=== PATIENT | female | born 1950 | race Hispanic/Latino ===

== ENCOUNTER 2018-01-06 08:24 | Emergency (ER) | payer OTHER ==
[2018-01-06] MEDS ORDERED: FAMOTIDINE 20 MG/2 ML VIAL IV ONE (09:13)
[2018-01-06] MEDS ORDERED: ONDANSETRON 4 MG/2 ML VIAL ONE (09:13)
[2018-01-06 09:33] LABS: Absolute Lymphocytes (CBC) 0.6 K/uL (0.7-4.9); Absolute Monocytes 0.4 K/uL (0.1-1.3); Absolute Neutrophil 6.7 K/uL (1.8-8.0); Basophils % 0.3 % (0-1.3); Eosinophils % 0.1 % (0-4.4); Hematocrit 39.3 % (36.0-45.0); Lymphocytes % 7.9 % (15.3-44.8); MCH 30.3 pg (27.0-35.0); MCV 88.6 fL (80-100); MPV 8.8 fL (7.6-11.3); Monocytes % 5.1 % (3.3-12.3); RBC Red Blood Cell Count 4.43 M/uL (3.86-4.86)
[2018-01-06 10:02] LABS: Albumin 4.3 g/dL (3.2-5.5); Bilirubin Direct 0.1 mg/dL (0-0.2); Bilirubin Total 0.7 mg/dL (0.3-1.2); Potassium 2.8 mEq/L (3.6-5.0); Protein, Total 8.4 g/dL (6.0-8.3)
--- NOTE | 2018-01-06 10:02 | RAD REPORT ---
EXAM DESCRIPTION: CT - Stone Protocol - 01/06/2018 9:42 am CLINICAL HISTORY: Abdominal pain. Epigastric pain with vomiting. COMPARISON: 2016 TECHNIQUE: Computed axial tomography of the abdomen pelvis was obtained without oral or IV contrast. Lack of IV and oral contrast limits evaluation of solid organs, bowel, and vessels. Coronal reformat endy images were obtained and reviewed. All CT scans are performed using dose optimization technique as appropriate and may include automated exposure control or mA/KV adjustment according to patient size. FINDINGS: A renal calculus is not seen. An ureteral calculus is not noted. A bladder calculus is not present. The liver, spleen, pancreas and adrenals appear grossly normal There is no evidence of diverticulitis. The appendix is dilated and fluid-filled measuring 23 millimeters. The appendix extends superiorly. S tranding within the adjacent fat is not seen. Spondylosis involves lumbar spine resulting in spinal stenosis IMPRESSION: Mucocele of the appendix
[2018-01-06] MEDS ORDERED: POTASSIUM 25 MEQ EFFERV TAB ONE (10:16)
[2018-01-06 10:20] LABS: Blood Morphology Comment NOT SEEN (NOT SEEN); Platelet Estimate ADEQ; Urine White Blood Cell Casts OK
[2018-01-06 10:52] LABS: Urine Bacteria 20-50 /HPF (<20); Urine Culture Reflex Order REFLEXED
[2018-01-06 11:16] LABS: Urine Blood 1+ (NEG); Urine Glucose NEGATIVE (NEG); Urine Protein 2+ (NEG); Urine Specific Gravity >1.030 (1.005-1.030)
--- NOTE | 2018-01-06 13:56 | ER ---
Nurse's Notes [facility] Name: Elvie Parson Age: 67 yrs Sex: Female : 1950 Arrival Date: 01/06/2018 Time: 08:25 Bed 8 Private MD: Diagnosis: Vomiting;Hypokalemia Presentation: 01/06 08:38 Presenting complaint: Patient states: epigastric pain with vomiting that began today at aa5 0400. Pt denies diarrhea. Transition of care: patient was not received from another setting of care. Onset of symptoms was December 2017. Initial Sepsis Screen: Does the patient meet any 2 criteria? No. Patient's initial sepsis screen is negative. Does the patient have a suspected source of infection? No. Patient's initial sepsis screen is negative. Care prior to arrival: None. 08:38 Method Of Arrival: Ambulatory [facility] 08:38 Acuity: CRISTINA 3 aa5 Historical: - Allergies: 08:39 No Known Allergies; aa5 - Home Meds: 08:39 None [Active]; aa5 - PMHx: 08:39 Heart Murmur; aa5 - PSHx: 08:39 None; aa5 - Immunization history:: Pneumococcal vaccine is not up to date, Flu vaccine is not up to date. - Social history:: Smoking status: Patient uses tobacco products, smokes one-half pack cigarettes per day. Screenin:09 Abuse screen: Denies threats or abuse. Nutritional screening: No deficits noted. ae1 Tuberculosis screening: No symptoms or risk factors identified. Fall Risk None identified. Assessment: 09:01 General: Appears in no apparent distress. uncomfortable, slender, Behavior is calm, ae1 cooperative. Pain: Complains of pain in epigastric area, right upper quadrant and left upper quadrant. Neuro: Level of Consciousness is awake, alert, obeys commands, Oriented to person, place, time, situation. Cardiovascular: Heart tones S1 S2 present Patient's skin is warm and dry. Rhythm is regular. Respiratory: Airway is patent Respiratory effort is even, unlabored, Respiratory pattern is regular, symmetrical, Breath sounds are clear bilaterally. GI: Bowel sounds present X 4 quads. Abd is soft Abdomen is tender to palpation in right upper quadrant and left upper quadrant Reports vomiting. GI: Patient currently denies diarrhea, Patient describes vomitus as "yellow and sometimes greenish". : No signs and/or symptoms were reported regarding the genitourinary system. EENT: No signs and/or symptoms were reported regarding the EENT system. wears glasses. Derm: Skin is normal. Musculoskeletal: No signs and/or symptoms reported regarding the musculoskeletal system. 10:00 Reassessment: Patient appears in no apparent distress at this time. Patient states ae1 feeling better. Patient states symptoms have improved. 11:30 Reassessment: No changes from previously documented assessment. Patient and/or family ae1 updated on plan of care and expected duration. Pain level reassessed. 13:58 Reassessment: Informed patient that provider would like a urine catheterization, ae1 patient refused cath, provider notified. Patient states feeling better. Patient states symptoms have improved. Vital Signs: 08:39 BP 155 / 95; Pulse 73; Resp 16 S; Temp 98.1(O); Pulse Ox 99% on R/A; Weight 68.49 kg aa5 (R); Height 5 ft. 7 in. (170.18 cm) (R); Pain 8/10; 09:30 BP 168 / 64; Pulse 59; Resp 16; Pulse Ox 98% on R/A; ae1 10:11 BP 163 / 72; Pulse 71; Resp 17; Pulse Ox 100% on R/A; ae1 11:00 BP 167 / 78; Pulse 64; Resp 16; Pulse Ox 100% ; jl7 11:37 BP 167 / 74; Pulse 70; Resp 16; Pulse Ox 100% ; jl7 13:39 BP 185 / 75; Pulse 74; Resp 18; Pulse Ox 99% on R/A; jb1 08:39 Body Mass Index 23.65 (68.49 kg, 170.18 cm) aa5 ED Course: 08:25 Patient arrived in ED. sb2 08:38 Triage completed. aa5 08:39 Arm band placed on. aa5 08:50 Martin Walker MD is Attending Physician. gs 08:59 Yosef Quiros, FREDO is Primary Nurse. ae1 09:06 Placed in gown. Bed in low position. Call light in reach. Side rails up X 1. Adult w/ ae1 patient. Pulse ox on. NIBP on. Warm blanket given. 09:10 Initial lab(s) drawn, by me. Inserted saline lock: 20 gauge in right antecubital area, jb1 using aseptic technique. Blood collected. 09:27 EKG done, by access tech. reviewed by Martin Walker MD. tc 09:41 CT completed. Patient tolerated procedure well. Patient moved to CT via stretcher. jg1 Patient moved back from CT. 09:42 CT Stone Protocol In Process Unspecified. EDMS Administered Medications: 09:09 Drug: Pepcid 20 mg Route: IVP; Site: right antecubital; ae1 10:21 Follow up: Response: No adverse reaction ae1 09:14 Drug: Zofran 4 mg Route: IVP; Site: right antecubital; ae1 10:21 Follow up: Response: Nausea is decreased ae1 10:21 Drug: Potassium Effervescent Tablet 50 mEq Route: PO; ae1 13:29 Follow up: Response: No adverse reaction ae1 Outcome: 13:55 Discharge ordered by . 14:17 Patient left the ED. aa 15:10 Patient left the ED. Addendum: 01/10/2018 10:16 Addendum: Culture Results: Positive urine culture. No further action required. Other: i w culture report was reviewed by HUMBERTO Saxena, pt had no urinary s/s and was advised to follow up with PCP, no further action needed. Signatures: Dispatcher [employer] EDMS Corey Gonzales jb1 Francine Rodriges jg1 Jacklyn Santizo, FREDO YOO iw Arlene Dee RN RN aa5 Jeri Sweeney, sap consultant EKG Ttc Yosef Quiros RN RN ae1 Kirstin Winter RN RN jl7 Martin Walker MD MD May Johnson 2
--- NOTE | 2018-01-06 13:56 | EDPHYS ---
Physician Documentation [facility] Name: Elvie Parson Age: 67 yrs Sex: Female : 1950 Arrival Date: 01/06/2018 Time: 08:25 Bed 8 Private MD: ED Physician Martin Walker HPI: 01/06 14:55 This 67 yrs old Female presents to ER via Ambulatory with complaints of Abd gs Pain > 50 y/o, Vomiting. 14:55 The patient presents to the emergency department with nausea, vomiting. Onset: The gs symptoms/episode began/occurred yesterday. Possible causes: unknown. The symptoms are aggravated by nothing. The symptoms are alleviated by nothing. Associated signs and symptoms: Pertinent positives: abdominal pain, epigastric. Severity of symptoms: At their worst the symptoms were severe in the emergency department the symptoms have improved markedly. The patient has experienced similar episodes in the past, a few times. Historical: - Allergies: 08:39 No Known Allergies; aa5 - Home Meds: 08:39 None [Active]; aa5 - PMHx: 08:39 Heart Murmur; aa5 - PSHx: 08:39 None; aa5 - Immunization history:: Pneumococcal vaccine is not up to date, Flu vaccine is not up to date. - Social history:: Smoking status: Patient uses tobacco products, smokes one-half pack cigarettes per day. ROS: 14:55 Cardiovascular: Negative for chest pain. gs 14:55 All other systems are negative. Exam: 14:55 Head/Face: Normocephalic, atraumatic. Eyes: Pupils equal round and reactive to light, gs extra-ocular motions intact. Lids and lashes normal. Conjunctiva and sclera are non-icteric and not injected. Cornea within normal limits. Periorbital areas with no swelling, redness, or edema. ENT: Nares patent. No nasal discharge, no septal abnormalities noted. Tympanic membranes are normal and external auditory canals are clear. Oropharynx with no redness, swelling, or masses, exudates, or evidence of obstruction, uvula midline. Mucous membranes moist. Neck: Trachea midline, no thyromegaly or masses palpated, and no cervical lymphadenopathy. Supple, full range of motion without nuchal rigidity, or vertebral point tenderness. No Meningismus. Chest/axilla: Normal chest wall appearance and motion. Nontender with no deformity. No lesions are appreciated. Cardiovascular: Regular rate and rhythm with a normal S1 and S2. No gallops, murmurs, or rubs. Normal PMI, no JVD. No pulse deficits. Respiratory: Lungs have equal breath sounds bilaterally, clear to auscultation and percussion. No rales, rhonchi or wheezes noted. No increased work of breathing, no retractions or nasal flaring. Back: No spinal tenderness. No costovertebral tenderness. Full range of motion. Skin: Warm, dry with normal turgor. Normal color with no rashes, no lesions, and no evidence of cellulitis. MS/ Extremity: Pulses equal, no cyanosis. Neurovascular intact. Full, normal range of motion. Neuro: Awake and alert, GCS 15, oriented to person, place, time, and situation. Cranial nerves II-XII grossly intact. Motor strength 5/5 in all extremities. Sensory grossly intact. Cerebellar exam normal. Normal gait. 14:55 Constitutional: The patient appears alert, awake, uncomfortable. 14:55 ECG was reviewed by the Attending Physician. 15:03 Abdomen/GI: Palpation: moderate abdominal tenderness, in the epigastric area. Vital Signs: 08:39 BP 155 / 95; Pulse 73; Resp 16 S; Temp 98.1(O); Pulse Ox 99% on R/A; Weight 68.49 kg aa5 (R); Height 5 ft. 7 in. (170.18 cm) (R); Pain 8/10; 09:30 BP 168 / 64; Pulse 59; Resp 16; Pulse Ox 98% on R/A; ae1 10:11 BP 163 / 72; Pulse 71; Resp 17; Pulse Ox 100% on R/A; ae1 11:00 BP 167 / 78; Pulse 64; Resp 16; Pulse Ox 100% ; jl7 11:37 BP 167 / 74; Pulse 70; Resp 16; Pulse Ox 100% ; jl7 13:39 BP 185 / 75; Pulse 74; Resp 18; Pulse Ox 99% on R/A; jb1 08:39 Body Mass Index 23.65 (68.49 kg, 170.18 cm) aa5 MDM: 09:03 Patient medically screened. 15:03 Differential diagnosis: pancreatitis, appendicitis, viral gastroenteritis, gs gastroenteritis. Data reviewed: vital signs, nurses notes. Counseling: I had a detailed discussion with the patient and/or guardian regarding: the presence of at least one elevated blood pressure reading (>120/80) during this emergency department visit. Response to treatment: the patient's symptoms have markedly improved after treatment, the patient is now symptom free, patient is well hydrated. and as a result, I will discharge patient. Special discussion: I have referred the patient to see his PCP for further evaluation of high blood pressure. ED course: pend urine culture will start abx as couldn't get repeat cath urine as pt refused. 01/06 09:08 Order name: Basic Metabolic Panel; Complete Time: 10:27 01/06 09:08 Order name: CBC with Diff; Complete Time: 10: 01/06 09:08 Order name: Hepatic Function; Complete Time: 10: 01/06 09:08 Order name: Lipase; Complete Time: 10:27 01/06 09:08 Order name: Urine Microscopic Only; Complete Time: 11:35 01/06 09:36 Order name: CBC Smear Scan; Complete Time: 10:27 [facility] 01/06 09:08 Order name: CT Stone Protocol; Complete Time: 10:27 01/06 10:34 Order name: Urine Dipstick--Ancillary (enter results); Complete Time: 11:35 01/06 10:52 Order name: Urine Culture [facility] 01/06 09:08 Order name: IV Saline Lock; Complete Time: 09:11 01/06 09:08 Order name: Labs collected and sent; Complete Time: 09:13 01/06 09:08 Order name: Urine Dipstick-Ancillary (obtain specimen); Complete Time: 10:21 01/06 09:08 Order name: EKG; Complete Time: 09: 01/06 09:08 Order name: EKG - Nurse/Tech; Complete Time: 09:41 gs EC:55 Rate is 63 beats/min. Rhythm is regular. MD interval is normal. QRS interval is normal. gs T waves are Normal. No ST changes noted. Clinical impression: Normal ECG. Interpreted by me. Administered Medications: 09:09 Drug: Pepcid 20 mg Route: IVP; Site: right antecubital; ae1 10:21 Follow up: Response: No adverse reaction ae1 09:14 Drug: Zofran 4 mg Route: IVP; Site: right antecubital; ae1 10:21 Follow up: Response: Nausea is decreased ae1 10:21 Drug: Potassium Effervescent Tablet 50 mEq Route: PO; ae1 13:29 Follow up: Response: No adverse reaction ae1 Disposition: 01/06/18 13:55 Discharged to Home. Impression: Vomiting, Hypokalemia. - Condition is Stable. - Discharge Instructions: Managing Your High Blood Pressure. - Prescriptions for Zofran 4 mg Oral Tablet - take 1 tablet by ORAL route every 12 hours As needed; 10 tablet. Pepcid 20 mg Oral Tablet - take 1 tablet by ORAL route once daily; 20 tablet. Potassium Chloride 20 meq Oral Packet - take 1 packet by ORAL route once daily 1 packet in 6 (six) ounces of water or juice; Take after meal; 10 packet. - Medication Reconciliation Form, Thank You Letter, Antibiotic Education, Prescription Opioid Use form. - Follow up: Private Physician; When: 2 - 3 days; Reason: Re-evaluation by your physician. Signatures: Dispatcher [employer] EDMS Arlene Dee RN RN aa5 Yosef Quiros RN RN ae1 Martin Walker MD MD gs Corrections: (The following items were deleted from the chart) 14:17 13:55 01/06/2018 13:55 Discharged to Home. Impression: Vomiting; Hypokalemia. Condition aa5 is Stable. Forms are Medication Reconciliation Form, Thank You Letter, Antibiotic Education, Prescription Opioid Use. Follow up: Private Physician; When: 2 - 3 days; Reason: Re-evaluation by your physician. gs 15:10 14:17 01/06/2018 13:55 Discharged to Home. Impression: Vomiting; Hypokalemia. Condition gs is Stable. Prescriptions for Zofran 4 mg Oral Tablet - take 1 tablet by ORAL route every 12 hours As needed; 10 tablet, Pepcid 20 mg Oral Tablet - take 1 tablet by ORAL route once daily; 20 tablet, Potassium Chloride 20 meq Oral Packet - take 1 packet by ORAL route once daily 1 packet in 6 (six) ounces of water or juice; Take after meal; 10 packet. and Forms are Medication Reconciliation Form, Thank You Letter, Antibiotic Education, Prescription Opioid Use. Follow up: Private Physician; When: 2 - 3 days; Reason: Re-evaluation by your physician. aa5
--- NOTE | 2018-01-06 15:40 | EKG ---
Test Date: 2018-01-06 Test Time: 09:22:04 Gimp Tacker: MAMADOU MEASUREMENT RESULTS: Intervals: Rate: 63 CT: 128 QRSD: 94 QT: 430 QTc: 440 [place]: P: 56 CT: 128 QRS: 45 T: 54 INTERPRETIVE STATEMENTS: Sinus rhythm with marked sinus arrhythmia Otherwise normal ECG Compared to ECG 06/09/2015 04:56:47 Incomplete right bundle-branch block no longer present Electronically Signed On 01-06-18 15:39:28 CDT by Gavin Gutierres
== END 2018-01-06 15:10 | disposition home or self-care (01) ==
LOC: ER 08:24
DX: E87.6 Hypokalemia (principal); R01.1 Cardiac murmur, unspecified; F17.210 Nicotine dependence, cigarettes, uncomplicated
CPT/HCPCS: 36415; 74176; 76377; 80048; 80076; 83690; 85025; 87077; 87086; 87088; 87186; 93005; 96374; 96375; 99284; J2405; 81003; 81015

== ENCOUNTER 2018-06-16 22:42 | Inpatient (IN) | payer OTHER ==
[2018-06-16 23:47] LABS: Absolute Lymphocytes (CBC) 0.2 K/uL (0.7-4.9); Absolute Monocytes 0.1 K/uL (0.1-1.3); Absolute Neutrophil 6.3 K/uL (1.8-8.0); Basophils % 0.2 % (0-1.3); Eosinophils % 0.1 % (0-4.4); Hematocrit 34.6 % (36.0-45.0); Lymphocytes % 2.8 % (15.3-44.8); MCH 31.2 pg (27.0-35.0); MCV 89.4 fL (80-100); Monocytes % 1.2 % (3.3-12.3); RBC Red Blood Cell Count 3.87 M/uL (3.86-4.86)
[2018-06-16 23:58] LABS: Urine Bacteria LOADED /HPF (<20)
[2018-06-16 23:59] LABS: Urine Culture Reflex Order REFLEXED
[2018-06-17 00:01] LABS: Urine Blood 2+ (NEG); Urine Glucose NEGATIVE (NEG); Urine Protein 2+ (NEG); Urine pH 7.5 (5.0-7.0)
[2018-06-17] MEDS ORDERED: NA CHLORIDE 0.9% 500 ML ONE (00:01)
[2018-06-17] MEDS ORDERED: KETOROLAC 30 MG/ML INJ ONE ×2 (00:01→14:02)
[2018-06-17] MEDS ORDERED: ONDANSETRON 4 MG/2 ML VIAL ONE (00:01)
[2018-06-17 00:08] LABS: Albumin 3.9 g/dL (3.4-5.0); Bilirubin Direct 0.3 mg/dL (0-0.2); Bilirubin Total 0.9 mg/dL (0.2-1.0); Protein, Total 8.1 g/dL (6.4-8.2)
[2018-06-17 01:11] LABS: Blood Morphology Comment NOT SEEN (NOT SEEN); Platelet Estimate ADEQ; Urine White Blood Cell Casts OK
[2018-06-17] MEDS ORDERED: CEFTRIAXONE/SWI 1gm 1 GM/10 ML SYR ONE (02:43)
[2018-06-17] MEDS ORDERED: NA CHLORIDE 0.9% 1,000 ML ONE (02:43)
[2018-06-17] MEDS ORDERED: KCL 20 MEQ/100 mL IVPB 20 MEQ/100 ML BAG IV ONE (02:43)
--- NOTE | 2018-06-17 06:33 | ER ---
Nurse's Notes [facility] Name: Elvie Pasron Age: 67 yrs Sex: Female : 1950 Arrival Date: 06/16/2018 Time: 22:45 Bed 7 Private MD: Diagnosis: Right lower quadrant abdominal tenderness;Acute tubulo-interstitial nephritis Presentation: 06/16 22:58 Presenting complaint: Patient states: right flank pain radiates to right lower quadrant ak1 since this afternoon. pt vomited X1 today. Transition of care: patient was not received from another setting of care. Onset of symptoms was June 16, 2018. Risk Assessment: Do you want to hurt yourself or someone else? Patient reports no desire to harm self or others. Initial Sepsis Screen: Does the patient meet any 2 criteria? No. Patient's initial sepsis screen is negative. Does the patient have a suspected source of infection? No. Patient's initial sepsis screen is negative. Care prior to arrival: None. 22:58 Method Of Arrival: Wheelchair ak1 22:58 Acuity: CRISTINA 3 ak1 Triage Assessment: 23:00 General: Appears uncomfortable, Behavior is calm, cooperative. Pain: Complains of pain ak1 in right mid back and right low back. EENT: No signs and/or symptoms were reported regarding the EENT system. Neuro: No deficits noted. Cardiovascular: No deficits noted. Respiratory: No deficits noted. GI: Reports nausea, vomiting. : Reports pain in right flank(s). Derm: No signs and/or symptoms reported regarding the dermatologic system. Musculoskeletal: Range of motion: intact in all extremities. Historical: - Allergies: 23:00 No Known Allergies; ak1 - Home Meds: 23:00 None [Active]; ak1 - PMHx: 23:00 Heart Murmur; ak1 - PSHx: 23:00 None; ak1 - Immunization history:: Adult Immunizations unknown. - Social history:: Smoking status: Patient uses tobacco products, smokes one-half pack cigarettes per day. - Ebola Screening: : No symptoms or risks identified at this time. Screenin:02 Abuse screen: Denies threats or abuse. Denies injuries from another. Nutritional ak1 screening: No deficits noted. Tuberculosis screening: No symptoms or risk factors identified. Fall Risk None identified. Assessment: 23:02 Reassessment: Patient appears in no apparent distress at this time. see triage ak1 assessment. General: Appears uncomfortable. Neuro: Level of Consciousness is awake, alert, obeys commands, Oriented to person, place, time, situation, Attendance Clerk are equal bilaterally Moves all extremities. Gait is steady, Speech is normal. 06/17 00:48 Reassessment: Patient appears in no apparent distress at this time. No changes from jd3 previously documented assessment. Patient and/or family updated on plan of care and expected duration. Pain level reassessed. Patient is alert, oriented x 3, equal unlabored respirations, skin warm/dry/pink. 02:44 Reassessment: Patient appears in no apparent distress at this time. No changes from ak1 previously documented assessment. Patient and/or family updated on plan of care and expected duration. Pain level reassessed. Patient is alert, oriented x 3, equal unlabored respirations, skin warm/dry/pink. pt finished drinking oral contrast. 03:30 Reassessment: Patient appears in no apparent distress at this time. No changes from jd3 previously documented assessment. Patient and/or family updated on plan of care and expected duration. Pain level reassessed. Patient is alert, oriented x 3, equal unlabored respirations, skin warm/dry/pink. 04:30 Reassessment: Patient appears in no apparent distress at this time. No changes from jd3 previously documented assessment. Patient and/or family updated on plan of care and expected duration. Pain level reassessed. Patient is alert, oriented x 3, equal unlabored respirations, skin warm/dry/pink. 05:10 Reassessment: Patient appears in no apparent distress at this time. No changes from jd3 previously documented assessment. Patient and/or family updated on plan of care and expected duration. Pain level reassessed. Patient is alert, oriented x 3, equal unlabored respirations, skin warm/dry/pink. 06:44 Reassessment: Patient appears in no apparent distress at this time. No changes from jd3 previously documented assessment. Patient and/or family updated on plan of care and expected duration. Pain level reassessed. Patient is alert, oriented x 3, equal unlabored respirations, skin warm/dry/pink. 08:20 Reassessment: Dr. Hammer at bedside discussing plan of care. [facility] 09:30 Reassessment: Patient appears in no apparent distress at this time. No changes from jl7 previously documented assessment. Patient and/or family updated on plan of care and expected duration. Pain level reassessed. Patient is alert, oriented x 3, equal unlabored respirations, skin warm/dry/pink. 10:30 Reassessment: Patient and/or family updated on plan of care and expected duration. Pain jl7 level reassessed. Patient is alert, oriented x 3, equal unlabored respirations, skin warm/dry/pink. Vital Signs: 06/16 23:00 BP 146 / 83; Pulse 97; Resp 18; Temp 98.6(O); Pulse Ox 100% on R/A; Weight 72.57 kg ak1 (R); Height 5 ft. 7 in. (170.18 cm) (R); Pain 05/01; 06/17 00:49 BP 130 / 70; Pulse 83; Resp 18 S; Pulse Ox 100% on R/A; jd3 02:44 BP 138 / 66; Pulse 80; Resp 16; Temp 98.4; Pulse Ox 100% on R/A; Pain 02/28; ak1 03:30 BP 114 / 58; Pulse 81; Resp 17 S; Pulse Ox 99% on R/A; jd3 04:15 BP 129 / 60; Pulse 82; Resp 16 S; Pulse Ox 100% on R/A; jd3 05:13 BP 126 / 56; Pulse 83; Resp 16 S; Pulse Ox 100% on R/A; jd3 06:44 BP 161 / 80; Pulse 102; Resp 17 S; Pulse Ox 98% on R/A; jd3 07:00 BP 154 / 76; Pulse 102; Resp 16 S; Pulse Ox 98% on R/A; jl7 08:20 BP 122 / 71; Pulse 100; Resp 18 S; Pulse Ox 97% on R/A; jl7 09:00 BP 128 / 76; Pulse 99; Resp 16 S; Pulse Ox 98% on R/A; jl7 10:00 BP 111 / 52; Pulse 91; Resp 16 S; Pulse Ox 97% on R/A; jl7 10:48 BP 116 / 62; Pulse 102; Resp 16 S; Pulse Ox 99% on R/A; jl7 06/16 23:00 Body Mass Index 25.06 (72.57 kg, 170.18 cm) ak1 ED Course: 06/16 22:45 Patient arrived in ED. ag3 22:58 Starla Kimball, RN is Primary Nurse. ak1 22:59 Triage completed. ak1 23:00 Arm band placed on Patient placed in an exam room, on a stretcher, on pulse oximetry, ak1 Patient notified of wait time. 23:02 Patient has correct armband on for positive identification. Placed in gown. Bed in low ak1 position. Call light in reach. Side rails up X 1. Adult w/ patient. Pulse ox on. NIBP on. 23:13 Adán Grayson PA is PHCP. cp 23:13 Dallas Posey MD is Attending Physician. cp 23:35 Urine Microscopic Only Sent. mw2 23:38 Inserted saline lock: 20 gauge in right antecubital area, using aseptic technique. jd3 Blood collected. 23:41 Lipase Sent. jd3 23:41 Hepatic Function Sent. jd3 23:41 CBC with Diff Sent. jd3 23:41 Basic Metabolic Panel Sent. jd3 23:[address] via wheelchair. kw1 23:48 CT Stone Protocol In Process Unspecified. EDMS 23:49 CT completed. Patient tolerated procedure well. Patient moved back from CT. kw1 06/17 04:[address] via wheelchair. kw1 04:41 CT Abd/Pelvis - W/Contrast: give oral contrast In Process Unspecified. EDMS 04:43 CT completed. Patient tolerated procedure well. Patient moved back from CT. kw1 06:15 Attending Physician role handed off by Dallas Posey MD gs 06:15 Martin Walker MD is Attending Physician. gs 06:31 Analy Granger MD is Hospitalizing Provider. gs 10:51 No provider procedures requiring assistance completed. Patient admitted, IV remains in jl7 place. intact, No redness/swelling at site. Administered Medications: 06/16 23:58 Drug: NS 0.9% 500 ml Route: IV; Rate: bolus; Site: right antecubital; ak1 06/17 00:16 Follow up: IV Status: Completed infusion ak1 00:46 Follow up: IV Status: Completed infusion ak1 06/16 23:59 Drug: TORadol 30 mg Route: IVP; Site: right antecubital; ak1 06/17 00:16 Follow up: Response: No adverse reaction ak1 06/16 23:59 Drug: Zofran 4 mg Route: IVP; Site: right antecubital; ak1 06/17 00:16 Follow up: Response: No adverse reaction ak1 02:43 Drug: Rocephin - (cefTRIAXone) 1 grams Route: IVPB; Infused Over: 30 mins; Site: right ak1 antecubital; 02:43 Follow up: IV Status: Completed infusion ak1 05:54 Follow up: IV Status: Completed infusion ak1 02:43 Drug: Potassium Chloride 20 mEq Route: IV; Rate: calculated rate; Site: right ak1 antecubital; 05:53 Follow up: IV Status: Completed infusion ak1 02:43 Drug: NS 0.9% 1000 ml Route: IV; Rate: 125 ml/hr; Site: right antecubital; ak1 10:50 Follow up: IV Status: Infusion continued upon admission jl7 Outcome: 06:33 Decision to Hospitalize by Provider. 10:51 Admitted to Med/surg accompanied by catherine, via stretcher, room 232, with chart, Report jl7 called to Chavo 10:51 Condition: stable 10:51 Discharge instructions given to patient, family, Instructed on the need for admit, Demonstrated understanding of instructions. 11:13 Patient left the ED. sv Signatures: Dispatcher [employer] EDVira Gaona RN RN sv Krenek, Amber RN RN ak1 Adán Grayson PA PA cp Leal, Jahala, RN RN jl7 Martin Walker MD MD gs Davies, Jonathon, RN RN jd3 Wilhelm, Kimberly 1 Rosita Fernando 2 Medina Max 3 Corrections: (The following items were deleted from the chart) 06/16 23:55 23:41 Creatinine for Radiology+C.LAB.BRZ drawn and sent. coleman SPIVEY
--- NOTE | 2018-06-17 06:33 | EDPHYS ---
Physician Documentation [facility] Name: Elvie Parson Age: 67 yrs Sex: Female : 1950 Arrival Date: 06/16/2018 Time: 22:45 Bed 7 Private MD: ED Physician Martin Walker HPI: 06/16 23:30 This 67 yrs old Female presents to ER via Wheelchair with complaints of Back cp Pain. 23:30 The patient presents with pain that is acute, with no known mechanism of injury. The cp symptoms are located in the right low back. 23:30 Onset: The symptoms/episode began/occurred today. cp 23:30 The pain radiates to the right lower abdomen. Associated signs and symptoms: Pertinent cp positives: abdominal pain, nausea, vomiting, Pertinent negatives: constipation, fever, headache, incontinence, numbness, urinary retention, weakness. The problem was sustained from unknown cause. Severity of symptoms: in the emergency department the symptoms are unchanged, despite home interventions. Historical: - Allergies: 23:00 No Known Allergies; ak1 - Home Meds: 23:00 None [Active]; ak1 - PMHx: 23:00 Heart Murmur; ak1 - PSHx: 23:00 None; ak1 - Immunization history:: Adult Immunizations unknown. - Social history:: Smoking status: Patient uses tobacco products, smokes one-half pack cigarettes per day. - Ebola Screening: : No symptoms or risks identified at this time. ROS: 23:35 Constitutional: Negative for body aches, chills, fever, poor PO intake. cp 23:35 Eyes: Negative for injury, pain, redness, and discharge. cp 23:35 ENT: Negative for drainage from ear(s), ear pain, sore throat, difficulty swallowing, difficulty handling secretions. 23:35 Cardiovascular: Negative for chest pain, palpitations. 23:35 Respiratory: Negative for cough, shortness of breath, wheezing. 23:35 Abdomen/GI: Positive for abdominal pain, nausea, vomiting, of the posterior aspect of right lateral abdomen, anterior aspect of right lateral abdomen and right lower quadrant, Negative for diarrhea, constipation, anorexia. 23:35 Back: Positive for pain at rest, of the right low back. 23:35 : Positive for urinary frequency, Negative for hematuria, vaginal bleeding, vaginal discharge. 23:35 MS/extremity: Negative for injury or acute deformity, pain, paresthesias. 23:35 Skin: Negative for cellulitis, rash. 23:35 Neuro: Negative for altered mental status, headache, weakness. 23:35 All other systems are negative. Exam: 23:42 Constitutional: The patient appears in no acute distress, alert, awake, cp non-diaphoretic, non-toxic, well developed, well nourished, uncomfortable. 23:42 Head/Face: Normocephalic, atraumatic. cp 23:42 Eyes: Periorbital structures: appear normal, Conjunctiva: normal, no exudate, no injection, Sclera: no appreciated abnormality, Lids and lashes: appear normal, bilaterally. 23:42 ENT: External ear(s): are unremarkable, Nose: is normal, Mouth: Lips: moist, Oral mucosa: pink and intact, moist, Posterior pharynx: is normal, airway is patent, no erythema, no exudate, Voice: is normal. 23:42 Neck: ROM/movement: is normal, is supple, without pain, no range of motions limitations, no nuchal rigidity. 23:42 Chest/axilla: Inspection: normal, Palpation: is normal, no crepitus, no tenderness. 23:42 Cardiovascular: Rate: normal, Rhythm: regular, Edema: is not appreciated. 23:42 Respiratory: the patient does not display signs of respiratory distress, Respirations: normal, no use of accessory muscles, no retractions, no splinting, no tachypnea, labored breathing, is not present, Breath sounds: are clear throughout, no decreased breath sounds, no stridor, no wheezing. 23:42 Abdomen/GI: Inspection: abdomen appears normal, Bowel sounds: active, all quadrants, Palpation: soft, in all quadrants, moderate abdominal tenderness, in the posterior aspect of right lateral abdomen, anterior aspect of right lateral abdomen and right lower quadrant, rebound tenderness, is not appreciated, involuntary guarding, is not appreciated. 23:42 Back: pain, that is moderate, of the right low back, ROM is normal. 23:42 Skin: cellulitis, is not appreciated, no rash present. 23:42 Neuro: Orientation: to person, place \T\ time. Mentation: is normal, Cerebellar function: is grossly normal, Motor: moves all fours, strength is normal, Sensation: is normal. Vital Signs: 23:00 BP 146 / 83; Pulse 97; Resp 18; Temp 98.6(O); Pulse Ox 100% on R/A; Weight 72.57 kg ak1 (R); Height 5 ft. 7 in. (170.18 cm) (R); Pain 9/10; 06/17 00:49 BP 130 / 70; Pulse 83; Resp 18 S; Pulse Ox 100% on R/A; jd3 02:44 BP 138 / 66; Pulse 80; Resp 16; Temp 98.4; Pulse Ox 100% on R/A; Pain 7/10; ak1 03:30 BP 114 / 58; Pulse 81; Resp 17 S; Pulse Ox 99% on R/A; jd3 04:15 BP 129 / 60; Pulse 82; Resp 16 S; Pulse Ox 100% on R/A; jd3 05:13 BP 126 / 56; Pulse 83; Resp 16 S; Pulse Ox 100% on R/A; jd3 06:44 BP 161 / 80; Pulse 102; Resp 17 S; Pulse Ox 98% on R/A; jd3 07:00 BP 154 / 76; Pulse 102; Resp 16 S; Pulse Ox 98% on R/A; jl7 08:20 BP 122 / 71; Pulse 100; Resp 18 S; Pulse Ox 97% on R/A; jl7 09:00 BP 128 / 76; Pulse 99; Resp 16 S; Pulse Ox 98% on R/A; jl7 10:00 BP 111 / 52; Pulse 91; Resp 16 S; Pulse Ox 97% on R/A; jl7 10:48 BP 116 / 62; Pulse 102; Resp 16 S; Pulse Ox 99% on R/A; jl7 06/16 23:00 Body Mass Index 25.06 (72.57 kg, 170.18 cm) ak1 MDM: 06/16 23:13 Patient medically screened. cp 06/17 00:00 Differential diagnosis: Ureterolithiasis UTI, pyelonephritis, colitis, appendicitis. cp 06:27 Data reviewed: vital signs, nurses notes, lab test result(s), radiologic studies. Physician consultation: Shaheen Bautista MD and will see patient in inpatient room. ED course: pt seen and examined rlq tender, r cva tender pt with rigors. will admit. 06/16 23:23 Order name: Basic Metabolic Panel; Complete Time: 01:05 cp 06/16 23:23 Order name: CBC with Diff; Complete Time: 02:26 cp 06/17 02:26 Interpretation: Normal except: HCT 34.6; TORITO% 95.7; LYM% 2.8; MN% 1.2; LYMA 0.2. cp 06/16 23:23 Order name: Hepatic Function; Complete Time: 01:05 cp 06/16 23:23 Order name: Lipase; Complete Time: 01:05 cp 06/16 23:23 Order name: Urine Microscopic Only; Complete Time: 01:05 cp 06/16 23:24 Order name: CT Stone Protocol; Complete Time: 18:26 cp 06/16 23:49 Order name: Urine Dipstick--Ancillary (enter results); Complete Time: 01:05 ms 06/17 00:00 Order name: Urine Culture EDMS 06/17 01:10 Order name: CT Abd/Pelvis - W/Contrast: give oral contrast; Complete Time: 18:26 cp 06/17 01:11 Order name: CBC Smear Scan; Complete Time: 02:26 EDMS 06/17 06:18 Order name: Blood Culture* gs 06/16 23:23 Order name: IV Saline Lock; Complete Time: 23:41 cp 06/16 23:23 Order name: Labs collected and sent; Complete Time: 23:41 cp 06/16 23:23 Order name: Urine Dipstick-Ancillary (obtain specimen); Complete Time: 23:34 cp Administered Medications: 06/16 23:58 Drug: NS 0.9% 500 ml Route: IV; Rate: bolus; Site: right antecubital; ak1 06/17 00:16 Follow up: IV Status: Completed infusion ak1 00:46 Follow up: IV Status: Completed infusion ak1 06/16 23:59 Drug: TORadol 30 mg Route: IVP; Site: right antecubital; ak1 06/17 00:16 Follow up: Response: No adverse reaction ak1 06/16 23:59 Drug: Zofran 4 mg Route: IVP; Site: right antecubital; ak1 06/17 00:16 Follow up: Response: No adverse reaction ak1 02:43 Drug: Rocephin - (cefTRIAXone) 1 grams Route: IVPB; Infused Over: 30 mins; Site: right ak1 antecubital; 02:43 Follow up: IV Status: Completed infusion ak1 05:54 Follow up: IV Status: Completed infusion ak1 02:43 Drug: Potassium Chloride 20 mEq Route: IV; Rate: calculated rate; Site: right ak1 antecubital; 05:53 Follow up: IV Status: Completed infusion ak1 02:43 Drug: NS 0.9% 1000 ml Route: IV; Rate: 125 ml/hr; Site: right antecubital; ak1 10:50 Follow up: IV Status: Infusion continued upon admission jl7 Disposition: 17:56 Co-signature as Attending Physician, Martin Walker MD. Disposition: 06/17/18 06:33 Hospitalization ordered by Analy Granger for Observation. Preliminary diagnosis are Right lower quadrant abdominal tenderness, Acute tubulo-interstitial nephritis. - Bed requested for Telemetry/MedSurg (observation). - Status is Observation. sv - Condition is Stable. - Problem is new. - Symptoms have improved. UTI on Admission? Yes Critical care time excluding procedures: : Critical care time: Bedside Care: 10 minutes, Consultation: 10 minutes, Family Intervention: 10 minutes. Total time: 30 minutes Signatures: Dispatcher [employer] EDHI Vira Mott RN RN sv Woody, Diana, RN RN dw Krenek, Amber, RN RN ak1 Adán Grayson PA PA cp Starr, Gregory, MD MD Zayra Bass Jahala RN jl7 Corrections: (The following items were deleted from the chart) 06/16 23:55 23:24 Creatinine for Radiology+C.LAB.BRZ ordered. EDHI EDHI 06/17 02:26 02:26 Normal except: HCT 34.6; TORITO% 95.7; LYM% 2.8; MN% 1.2. cp cp 09:54 06:33 Hospitalization Ordered by Analy Granger MD for Observation. Preliminary eb diagnosis is Right lower quadrant abdominal tenderness; Acute tubulo-interstitial nephritis. Bed requested for Telemetry/MedSurg (observation). Status is Observation. Condition is Stable. Problem is new. Symptoms have improved. UTI on Admission? Yes. 09:54 09:54 06/17/2018 06:33 Hospitalization Ordered by Analy Granger MD for Observation. eb Preliminary diagnosis is Right lower quadrant abdominal tenderness; Acute tubulo-interstitial nephritis. Bed requested for [facility] ER HOLD. Status is Observation. Condition is Stable. Problem is new. Symptoms have improved. UTI on Admission? Yes. eb 09:56 09:54 06/17/2018 06:33 Hospitalization Ordered by Analy Granger MD for Observation. dw Preliminary diagnosis is Right lower quadrant abdominal tenderness; Acute tubulo-interstitial nephritis. Bed requested for [facility] ER HOLD. Status is Observation. Condition is Stable. Problem is new. Symptoms have improved. UTI on Admission? Yes. eb 11:13 09:56 06/17/2018 06:33 Hospitalization Ordered by Analy Granger MD for Observation. sv Preliminary diagnosis is Right lower quadrant abdominal tenderness; Acute tubulo-interstitial nephritis. Bed requested for Telemetry/MedSurg (observation). Status is Observation. Condition is Stable. Problem is new. Symptoms have improved. UTI on Admission? Yes. dw
[2018-06-17] MEDS ORDERED: ACETAMINOPHEN 500 MG TAB PO PRN (07:13)
--- NOTE | 2018-06-17 08:58 | RAD REPORT ---
EXAM DESCRIPTION: CT - Stone Protocol - 06/17/2018 6:35 am CLINICAL HISTORY: Right-sided abdominal pain, right-sided flank pain A preliminary report was provided at the time of the study and reviewed prior to final report. COMPARISON: CT imaging January 06, 2018 and December 31, 2015 TECHNIQUE: Axial 5 mm thick images were obtained without oral or IV contrast. The [id number] span s the entirety of the system partially obscuring uppermost abdomen and lung bases. All CT scans are performed using dose optimization technique as appropriate and may include automated exposure control or mA/KV adjustment according to patient size. FINDINGS: No hydronephrosis is present and no obstructing ureteral calculi. No suspicious renal mass es. Isodense masses and pyelonephritis are not excluded on a stone protocol CT scan. Contracted urina ry bladder shows no suspicious finding. No uterine or ovarian process suspected. Ovary assessment is limited due to isodensity with adjacent small bowel. Imaged portions of the liver, spleen and pancreas show no suspicious findings on non-contrast imaging . Gallbladder is well filled but not dilated. No wall thickening or edema suspected. Gallstones can b e occult. No biliary tree dilatation. No significant adrenal finding. No gastric dilatation or wall thickening. No acute small bowel process identifiable. There is moderat e stool volume in the right-side of the colon. An acute, primary colon process is not suspected. In t he lateral right pelvis there is a 5 centimeter long tubular structure in fluid-filled or low-density . This appears to arise in close proximity to the tip of the cecum extending into the lateral lower r ight pelvis. This structure has been present previously but has elongated and increased in diameter n ow measuring approximately 2 cm compared to 15 mm in 2016. No wall thickening or edema. No surroundin g inflammatory or edematous stranding. An acute component is not suspected. This could be hydrops or mucocele of the appendix. Carcinoid near the base of the appendix is not excluded. There is a no anny cent lymphadenopathy or calcifications in this region. A small bowel duplication cyst mimicking an en larged appendix is an additional consideration. No hernia or bulky lymphadenopathy. No free air, free fluid or inflammatory stranding. Disc and bony degenerative changes are present. Patient has severe L4-5 facet degenerative change. Pr otruding disc material is present secondary to the anterior subluxation of L4. Patient likely has spi nal stenosis. No suspicious lung base finding. IMPRESSION: No hydronephrosis, obstructing calculus or acute finding. No gross abnormality of the contracted urinary bladder. Isodense masses and pyelonephritis are not excluded on stone protocol technique. Tubular fluid or low-density filled structure in the lateral lower right pelvis is suspected to be mu cocele or hydrops of the appendix. A carcinoid near the base of the appendix cannot be excluded. Dupl ication cyst of the small bowel is an additional consideration. This tubular mass does not appear to be an acutely significant finding. The mass has shown enlargemen t when comparing back to 2016. Advanced degenerative change at the L4-5 disc space with disc bulge and spinal stenosis evident. J Luis tional bone and disc degenerative changes are present.
[2018-06-17] MEDS ORDERED: CEFTRIAXONE 1 GM/NS 50 ML 1 GM/50 ML BAG IV SCH (09:00)
--- NOTE | 2018-06-17 11:00 | RAD REPORT ---
EXAM DESCRIPTION: CT - Abdomen Pelvis W Contrast - 06/17/2018 6:44 am CLINICAL HISTORY: Right flank pain, right lower quadrant pain A preliminary report was provided at the time of the study and reviewed prior to final report. COMPARISON: CT study June 17 ; CT imaging December 2017 and December 2015 TECHNIQUE: Biphasic, helical CT imaging of the abdomen and pelvis was performed following 100 ml non -ionic IV contrast. Oral contrast was given. All CT scans are performed using dose optimization technique as appropriate and may include automated exposure control or mA/KV adjustment according to patient size. FINDINGS: No suspicious findings in the lung bases. No new findings of the solid abdominal viscera, uterus or ovaries. No new bladder finding. Stomach, s mall bowel and large bowel without acute finding. Distal small bowel and right side colon are well opacified by contrast. The dilated tubular structure in the right lower quadrant is again identified. There is no oral contrast within the lumen. Lumen i s dilated to 2.5 cm. Attenuation value is less than 3 Hounsfield units. The wall is not thickened or edematous and there is no adjacent edematous or inflammatory stranding. Phleboliths are present in th e pelvis. No finding to suspect a ureteral calculus at this time. The mass in the right lower pelvis appears to arise from the tip of the cecum. There is no other stru cture seen that would represent the appendix. An enteric duplication cyst would be a potential etiolo gy. Cystic dilatation or hydrops of the appendix would be possible. A mucocele is possible as well. T here is no solid mass components confirmed. A small carcinoid or mass near the base of the appendix c ould be present and causing cystic dilatation of the remaining portion of the appendix. The right lower quadrant mass has been present as a structure back to 2016 but has enlarged over seri al imaging. With enlargement, the mass could be comes symptomatic. An emergent surgical finding is un likely. IMPRESSION: The enlarged 2.5 centimeter diameter tubular structure in the right lower quadrant is be tter visualized on this examination. Wall is relatively thin with cystic attenuation of the lumen julio césar suring less than 3 Hounsfield units. There is no contrast opacification of this mass. No adjacent inflammatory stranding, wall thickening or edema. There is no other structure seen to represent the appendix. Mucocele or hydrops of the appendix would be primary considerations. Enteric duplication cyst is a di fferential consideration. Acute appendicitis is not excluded but this would be an unusual presentatio n. Mass has been present as far back as 2016 but has enlarged over time. A surgically emergent etiology is unlikely though the mass could be symptomatic based on size.
[2018-06-17] MEDS: NA CHLORIDE 0.9% 1,000 ML IV SCH ×2 (12:11→16:53)
[2018-06-17] MEDS: MORPHINE 4 MG/ML SYR IV PRN ×2 (12:20→19:50)
[2018-06-17] MEDS ORDERED: INFLUENZA VACCINE (for 3y+) 0.5 ML DOSE IMVAC ONE (13:00)
[2018-06-17] MEDS ORDERED: PNEUMOCOCCAL VACCINE 0.5 ML IMVAC ONE (13:00)
[2018-06-17] MEDS: CIPROFLOXACIN 400mg IV 400 MG/200 ML BAG IV SCH ×2 (13:13→21:55)
[2018-06-17] MEDS ORDERED: MORPHINE 10 MG/ML VIAL ONE (14:02)
[2018-06-17] MEDS ORDERED: MIDAZOLAM HCL 2 MG/2 ML INJ ONE (14:02)
[2018-06-17] MEDS ORDERED: FENTANYL CITR 100 MCG/2 ML ONE (14:02)
[2018-06-17] MEDS ORDERED: PROPOFOL 200 MG/20 ML VIAL IV ONE (14:02)
[2018-06-17] MEDS ORDERED: GLYCOPYRROLATE 0.2 MG/ML SYR ONE (14:02)
[2018-06-17] MEDS ORDERED: LIDOCAINE 2% MPF 5 ML VIAL ONE (14:03)
[2018-06-17] MEDS ORDERED: ROCURONIUM 50 MG/5 ML VIAL IV ONE (14:03)
[2018-06-17] MEDS ORDERED: NEOSTIGMINE 1 MG/ML -5 ML SYRINGE ONE (14:03)
[2018-06-17] MEDS ORDERED: ONDANSETRON HCL 40 MG/20 ML VIAL ONE (14:03)
--- NOTE | 2018-06-17 14:25 | P.CNS ---
Date of Consult: 06/17/18 PC: This 67-year-old female presents emergency room with severe right lower quadrant abdominal pain for diagnosis and treatment. HPC: Patient has been experiencing right lower quadrant abdominal pain for the last few days. Describes it as severe. Seems to be sharp and constant in nature. Has been unrelenting. PMH: States he is otherwise healthy female PSHx: No prior surgeries SOC: No known allergies SYS REVIEW: No cough, wheeze, shortness of breath. No chest pain or palpitations. Has had some symptoms of dysuria. No change in bowel habit. O/E awake alert uncomfortable female laying in the bed, vital signs are stable HEENT: Not jaundice Chest: Chest movement equal bilateral ABD: Soft but does have tenderness in the right lower quadrant no true guarding or rebound LOCO: Intact DATA: Scan shows mass in the right lower quadrant possible mucocele of the appendix IMPRESSION: Mass in the right lower quad PLAN: I will take to the operating room for laparoscopic possible open removal of this mass from her abdomen been discussed. The possibility of bleeding, infection, injury to bowel and surrounding structures was explained. The possibility for an open and/or further surgeries and procedures was discussed. She her family understand and want to proceed.
--- NOTE | 2018-06-17 15:22 | P.OP ---
Preoperative diagnosis: Abdominal mass Postoperative diagnosis: Cystocele of the appendix Primary procedure: Laparoscopic appendectomy Anesthesia: General Estimated blood loss: Less than 10 cc Specimen: 1 appendix and contents Operative Technique: The patient brought the operating room and placed supine on the table. After the induction of adequate general endotracheal anesthesia, the area of the abdomen was prepped with a DuraPrep solution, and she was draped in usual aseptic manner. A subumbilical incision was made. This brought down through the skin and subcutaneous tissue. The Visiport was used to enter the peritoneal cavity and created pneumoperitoneum to approximately 12 mm of mercury. Under direct vision a 5 mm trocar was placed in the lower midline, and another in the right upper quadrant. The patient was now placed in marked Trendelenburg and rolled to the left. We could visualize the right lower quadrant. On tracing at the appendix we could see that it ran for approximately 2 cm and then there was a large cystic distention of the appendix itself. The normal poor see appendix was gently grasped with a grasper. It was elevated. A window was made into the mesentery of the appendix. We were now able to introduce some placed across this area a linear Stapler. The Stapler was fired just at the junction of the appendix with the cecum. A reload was necessary to take it with some margins. The mesentery of the appendix was now inspected. Once again a vascular Stapler was placed across the bowel mesentery of the appendix and fired. The appendix was completely detached. It was gently placed into an Endo-Catch and brought out through the umbilical trocar site. The specimen was intact and did not rupture on removal. At this point the abdomen is inspected to assure adequate hemostasis. The umbilical trocar site was approximated using the Endo Close an absorbable suture. Adequate hemostasis having been ensured, the trocars removed , the suture tied, and emily applied to the skin. At the end of the procedure she was stable when sent to the recovery room. Needle sponge instrument count were correct. No drains were placed. Complications: None Transferred to: Recovery Room Condition: Good
[2018-06-17] MEDS ORDERED: MORPHINE 4 MG/ML SYR IV PRN (15:23)
[2018-06-17] MEDS ORDERED: HYDROCODONE/APAP 7.5/325 MG TAB PO PRN (15:23)
[2018-06-17] MEDS ORDERED: Ringers Lactate 1,000 ML IV SCH (16:00)
[2018-06-17] MEDS: METRONIDAZOLE 500mg IVPB 500 MG/100 ML BAG IV SCH (16:56)
[2018-06-18] MEDS: METRONIDAZOLE 500mg IVPB 500 MG/100 ML BAG IV SCH ×3 (01:05→17:59)
[2018-06-18] MEDS: ONDANSETRON 4 MG/2 ML VIAL IV PRN ×4 (03:36→20:30)
[2018-06-18] MEDS: NA CHLORIDE 0.9% 1,000 ML IV SCH (03:37)
[2018-06-18] MEDS: MORPHINE 4 MG/ML SYR IV PRN (03:41)
--- NOTE | 2018-06-18 03:49 | P.HP ---
Certification for Inpatient Patient admitted to: Inpatient With expected LOS: >2 Midnights Patient will require the following post-hospital care: None Practitioner: I am a practitioner with admitting privileges, knowledge of patient current condition, hospital course, and medical plan of care. Services: Services provided to patient in accordance with Admission requirements found in Title 42 Section 412.3 of the Code of Federal Regulations Patient History Date of Service: 06/17/18 Reason for admission: Abdominal pain; acute abdomen; urinary tract infection History of Present Illness: Patient is a 67-year-old female who presents to the hospital with abdominal pain. Pain was mainly in the right lower quadrant. She describes it as severe and she also had rebound and guarding. She has had some fever as well some nausea and vomiting. Her pain radiates from or right flank region all the way to her right perineal region. The pain is more severe than any prior urinary tract infection that she is had. In the emergency room she had a CT of the abdomen and pelvis in the report revealed appendicitis. Surgery has been consulted. Will keep patient NPO for now. Await surgical recommendation. Medically patient denies any significant medical risk factors for cardiac disease. She denies any chest pain or shortness of breath. Patient is low risk for any cardiopulmonary complications. Allergies No Known Allergies Allergy (Unverified 06/08/15 14:40) Home Medications: Naproxen Sodium [Aleve] 220 mg PO DAILY PRN 06/17/18 - Past Medical/Surgical History Has patient received pneumonia vaccine in the past: No Diabetic: No -: arthritis Past Surgical History: Patient denies surgical history - Family History Mother Medical History: Heart disease, Hypertension, Diabetes, Other (see notes) Notes: arthritis, bypass surgeries, thyroid Father Medical History: Hypertension Brother Medical History: Heart disease, Diabetes - Social History Smoking Status: Current every day smoker Alcohol use: No CD- Drugs: No Caffeine use: Yes Place of Residence: Home Review of Systems 10-point ROS is otherwise unremarkable Physical Examination - Vital Signs Temperature: 98.2 F Blood Pressure: 121/58 Pulse: 77 Respirations: 18 Pulse Ox (%): 95 - Physical Exam General: Alert, In no apparent distress, Oriented x3 HEENT: Atraumatic, PERRLA, Mucous membr. moist/pink, EOMI, Sclerae nonicteric Neck: Supple, 2+ carotid pulse no bruit, No LAD, Without JVD or thyroid abnormality Respiratory: Clear to auscultation bilaterally, Normal air movement Cardiovascular: Regular rate/rhythm, Normal S1 S2 Gastrointestinal: Normal bowel sounds, Soft and benign, Distended, Tenderness, Rebound, Guarding Musculoskeletal: No clubbing, No swelling, No tenderness Integumentary: No rashes Neurological: Normal gait, Normal speech, Normal strength at 5/5 x4 extr, Normal tone, Sensation intact, Cranial nerves 3-12 intact, Normal affect Lymphatics: No axilla or inguinal lymphadenopathy Assessment & Plan - Problems (Diagnosis) (1) Acute appendicitis Current Visit: Yes Status: Acute (2) Urinary tract infection Current Visit: Yes Status: Acute (3) Nausea & vomiting Current Visit: Yes Status: Acute (4) Fever Current Visit: Yes Status: Acute (5) Hypokalemia Current Visit: Yes Status: Acute - Plan Plan: 1. Continue with IV hydration 2. Continue with IV antibiotics 3. Continue with pain control 4. NPO 5. General surgery consultation; 6. Serial H&H, and we will monitor CBC, BMP, LFTs and lipase along with electrolytes. 7. Patient is low risk for cardiopulmonary complications. Would advise to proceed with surgery after further evaluation. 8. GI and DVT prophylaxis - Advance Directives Does patient have a Living Will: No Does patient have a Durable POA for Healthcare: No - Code Status/Comfort Care Code Status Assessed: Yes Code Status: Full Code Critical Care: No Time Spent Managing PTS Care (In Minutes): 50
[2018-06-18] MEDS ORDERED: CEFTRIAXONE/SWI 1gm 1 GM/10 ML SYR IV SCH (06:00)
[2018-06-18] MEDS ORDERED: SODIUM CHLORIDE 0.9% 10ML INJ IV PRN (08:05)
[2018-06-18] MEDS: CIPROFLOXACIN 400mg IV 400 MG/200 ML BAG IV SCH ×2 (08:19→20:30)
[2018-06-18] MEDS: PANTOPRAZOLE 40 MG INJ IVP SCH (09:47)
[2018-06-18] MEDS: TRAMADOL HCL 50 MG TAB PO PRN (13:13)
[2018-06-18 13:19] LABS: Urine Appearance CLEAR; Urine Bilirubin NEGATIVE (NEG); Urine Blood NEGATIVE (NEG); Urine Color YELLOW; Urine Glucose NEGATIVE (NEG); Urine Protein NEGATIVE (NEG)
[2018-06-18 13:28] LABS: Urine Microscopic Reflex ORDER UMIC
[2018-06-18 13:29] LABS: Urine Bacteria <20 /HPF (<20); Urine Culture Reflex Order REFLEXED; Urine RBC <5 /HPF (NONE SEEN)
--- NOTE | 2018-06-18 15:03 | P.PN ---
Subjective Date of Service: 06/18/18 Chief Complaint: Abdominal pain; acute abdomen; urinary tract infection Subjective: Ambulating, Improving, Working w/ PT, Doing well Review of Systems 10-point ROS is otherwise unremarkable Physical Examination - Vital Signs Temperature: 98.5 F Blood Pressure: 188/90 Pulse: 83 Respirations: 17 Pulse Ox (%): 99 - Physical Exam General: Alert, In no apparent distress HEENT: Atraumatic, PERRLA, EOMI Neck: Supple, JVD not distended Respiratory: Clear to auscultation bilaterally, Normal air movement Cardiovascular: Regular rate/rhythm, Normal S1 S2 Gastrointestinal: Normal bowel sounds, Tenderness Musculoskeletal: No tenderness Integumentary: No rashes Neurological: Normal speech, Normal tone, Normal affect Lymphatics: No axilla or inguinal lymphadenopathy - Studies Medications List Reviewed: Yes Assessment And Plan - Current Problems (Diagnosis) (1) Acute appendicitis Current Visit: Yes Status: Acute Plan: Acute Appendicitis -gen Surgery consulted. Appreciated reccs -S/P Lap Appy with removal of cystocele appendix -IV cipro and Flagyl for now -Doing well overall -Ambulating and passing gas Qualifiers: Acute appendicitis type: with localized peritonitis Appendicitis gangrene presence: without gangrene Appendicitis perforation presence: without perforation Appendicitis abscess presence: without abscess Qualified Code(s) : K35.30 - Acute appendicitis with localized peritonitis, without perforation or gangrene (2) Nausea & vomiting Current Visit: Yes Status: Resolved Plan: IV zofran -resolved now Qualifiers: Vomiting type: bilious vomiting Qualified Code(s): R11.14 - Bilious vomiting (3) Urinary tract infection Current Visit: Yes Status: Acute Plan: UA with UTI -Culture pending at this time -On Abx for now Qualifiers: Urinary tract infection type: acute cystitis Hematuria presence: without hematuria Qualified Code(s): N30.00 - Acute cystitis without hematuria (4) Hypertension Onset Date: 06/09/15 Current Visit: No Status: Chronic Qualifiers: Hypertension type: essential hypertension Qualified Code(s): I10 - Essential (primary) hypertension Discharge Plan: Home Plan to discharge in: 48 Hours - Code Status/Comfort Care Code Status Assessed: Yes Critical Care: No
[2018-06-18] MEDS: MORPHINE 2 MG/ML SYR IV PRN ×2 (15:14→20:31)
--- NOTE | 2018-06-18 22:36 | P.PN ---
Date of Service: 06/18/18 S: This patient is no specific complaints, had a small amount of nausea earlier O: Vital signs remain stable, incisions clean A: Surgically stable status post laparoscopic appendectomy P: Patient may be discharged, see me in my office on Tuesday.
[2018-06-19] MEDS: METRONIDAZOLE 500mg IVPB 500 MG/100 ML BAG IV SCH ×2 (01:03→10:31)
[2018-06-19] MEDS ORDERED: Meropenem 500 MG in NA CHLORIDE 0.9% 100 ML IV SCH (09:00)
[2018-06-19] MEDS ORDERED: Meropenem 500 MG VIAL IV SCH (09:00)
[2018-06-19] MEDS: PANTOPRAZOLE 40 MG INJ IVP SCH (09:09)
--- NOTE | 2018-06-19 11:16 | P.PN ---
Subjective Date of Service: 06/19/18 Chief Complaint: Abdominal pain; acute abdomen; urinary tract infection Subjective: Tolerating diet, Ambulating, Improving, Working w/ PT, Doing well Urine + for ESBL Review of Systems 10-point ROS is otherwise unremarkable Physical Examination - Vital Signs Temperature: 98.4 F Blood Pressure: 176/72 Pulse: 70 Respirations: 18 Pulse Ox (%): 94 - Physical Exam General: Alert, In no apparent distress HEENT: Atraumatic, PERRLA, EOMI Neck: Supple, JVD not distended Respiratory: Clear to auscultation bilaterally, Normal air movement Cardiovascular: Regular rate/rhythm, Normal S1 S2 Gastrointestinal: Normal bowel sounds, No tenderness Musculoskeletal: No tenderness Integumentary: No rashes Neurological: Normal speech, Normal tone, Normal affect Lymphatics: No axilla or inguinal lymphadenopathy - Studies Microbiology Data (last 24 hrs): 06/16/18 23:31 Clean Catch Urine [place] Count - Final >100,000 CFU/ML. 06/16/18 23:31 Clean Catch Urine - Final Escherichia Coli Medications List Reviewed: Yes Assessment And Plan - Current Problems (Diagnosis) (1) Urinary tract infection Current Visit: Yes Status: Acute Plan: UA with UTI -Culture + for ESBL -On IV merrem q12h 1g -Scheduled for PICC line and CM consulted. Qualifiers: Urinary tract infection type: acute cystitis Hematuria presence: without hematuria Qualified Code(s): N30.00 - Acute cystitis without hematuria (2) Acute appendicitis Current Visit: Yes Status: Acute Plan: Acute Appendicitis -gen Surgery consulted. Appreciated reccs -S/P Lap Appy with removal of cystocele appendix POD # 2 -On IV merrem and Flagyl now -Doing well overall -Ambulating and passing gas Qualifiers: Acute appendicitis type: with localized peritonitis Appendicitis gangrene presence: without gangrene Appendicitis perforation presence: without perforation Appendicitis abscess presence: without abscess Qualified Code(s) : K35.30 - Acute appendicitis with localized peritonitis, without perforation or gangrene (3) Nausea & vomiting Current Visit: Yes Status: Resolved Plan: IV zofran -resolved now Qualifiers: Vomiting type: bilious vomiting Qualified Code(s): R11.14 - Bilious vomiting (4) Hypertension Onset Date: 06/09/15 Current Visit: No Status: Chronic Qualifiers: Hypertension type: essential hypertension Qualified Code(s): I10 - Essential (primary) hypertension Discharge Plan: Other Plan to discharge in: Greater than 2 days - Code Status/Comfort Care Code Status Assessed: Yes Critical Care: No
[2018-06-19 12:14] LABS: Albumin 2.9 g/dL (3.4-5.0); Bilirubin Total 0.4 mg/dL (0.2-1.0); Protein, Total 6.9 g/dL (6.4-8.2)
[2018-06-19 12:21] LABS: Potassium 2.8 mmol/L (3.5-5.1)
[2018-06-19] MEDS: KCL 20 MEQ/100 mL IVPB 20 MEQ/100 ML BAG IV SCH ×3 (12:45→20:05)
[2018-06-19] MEDS: Meropenem 1,000 MG in NA CHLORIDE 0.9% 100 ML IV SCH (20:06)
[2018-06-19] MEDS ORDERED: Meropenem 1000 MG/VIAL IV SCH (21:00)
[2018-06-19] MEDS ORDERED: NA CHLORIDE 0.9% 500 ML ONE (21:52)
[2018-06-20] MEDS: TRAMADOL HCL 50 MG TAB PO PRN (00:26)
[2018-06-20] MEDS ORDERED: POTASSIUM 25 MEQ EFFERV TAB PO ONE (02:23)
--- NOTE | 2018-06-20 08:11 | RAD REPORT ---
EXAM DESCRIPTION: RAD - Chest Single View - 06/20/2018 4:25 am CLINICAL HISTORY: Device placement PICC line placement COMPARISON: 06/09/2018 FINDINGS: A PICC line has been inserted with its tip in the distal superior vena cava. Left base is mildly hazy. . The heart is normal size. IMPRESSION: PICC line with its tip in the distal superior vena cava left base is mildly hazy. This may indicate an infiltrate and could be followed on subsequent examination
[2018-06-20] MEDS: PANTOPRAZOLE 40 MG INJ IVP SCH (09:08)
[2018-06-20] MEDS: Meropenem 1,000 MG in NA CHLORIDE 0.9% 100 ML IV SCH ×2 (09:08→20:58)
[2018-06-20] MEDS: ENOXAPARIN 40 MG/0.4 ML SQ SCH (18:34)
--- NOTE | 2018-06-20 19:53 | PN ---
Date of Progress Note: 06/20/2018 Patient seen and examined. Chart reviewed and case discussed with RN and high school social studies teacher. The patient is doing well. Pain is controlled. Daughter at the bedside. Treatment plan explained and all ques tions answered. Code Status: Full. Medications: List reviewed. Review of Systems: Negative except as above. Physical Examination: Vital Signs: Temperature 97.8, heart rate 74, blood pressure 141/66, respirations 20, O2 97% on room air. General: Awake, alert, oriented x3. No acute distress, elderly female. CV: S1, S2. No murmurs. Peripheral pulses present. Respiratory: Moving air well bilaterally. No wheezing. Gastrointestinal: Abdomen is soft. Mild tenderness to palpation around incision site. No guarding or rigidity. Bowel sounds are positive. Extremities: No clubbing, cyanosis, or edema. Neurologic: Nonfocal. Laboratory Data: Potassium 3.7. Microbiology from urine culture shows ESBL producing E coli. Blood culture also showing ESBL E coli. Chest x-ray personally reviewed shows PICC line in place. Left b ase mildly hazy could indicate infiltrate. Assessment And Plan: A 67-year-old female with. 1.Acute cystitis with extended spectrum beta-lactamase Escherichia coli. The patient will be contin ued on meropenem. The patient will need long-term IV antibiotics. We will continue contact precauti ons. PICC line has been placed. 2.Acute appendicitis status post laparoscopic appendectomy, postop day #3. The patient doing well p ostoperatively. Pain is well controlled. Tolerating diet. We will continue on IV antibiotics for n ow. The patient is able to ambulate, passing flatus. Appreciate Dr. Bautista's input. 3.Intractable nausea and vomiting, resolved. Continue antiemetics p.r.n. 4.Essential hypertension, stable. Resume home medications as appropriate. 5.Hypokalemia, replaced. We will continue to monitor. 6.Developing left lower lobe pneumonia, likely postoperative. We will continue with incentive farhad metry and antibiotics. The patient already on meropenem. 7.Bacteremia with extended spectrum beta-lactamase Escherichia coli. Continue Merrem. Will need at least 2 weeks. 8.Gastrointestinal and deep vein thrombosis prophylaxis addressed with proton pump inhibitors. We w ill add Lovenox. Continue SCDs. With the patient needs of long-term IV antibiotics, we will need either home health with IV antibioti cs or SNF. JOSE MANUEL Voice ID: [id number] Report ID: [id number]
--- NOTE | 2018-06-20 20:42 | CON ---
History Of Present Illness: This is a 67-year-old female coming in with urinary tract infection seco ndary to ESBL E. coli and bacteremia secondary to E. coli ESBL. The patient is currently being treat ed with meropenem. Feels better today. Denies any headache, nausea, vomiting, chest pain, abdominal pain, constipation, or diarrhea. Past Medical History: Includes diabetes mellitus, otherwise unremarkable. Past Surgical History: Noncontributory. Family History: Noncontributory. Medications: Meropenem. See MARs for other medications. Allergies: NO KNOWN DRUG ALLERGIES. Review of Systems: A 10-point review was performed. Physical Examination: General: This is a 67-year-old female, lying in bed, not in any acute cardiopulmonary distress. Vital signs: Temperature 97, pulse 74, respirations 18, blood pressure 141/66. HEENT: Unremarkable. Neck: Supple. Lungs: Basal crackles. Heart: S1, S2. Regular. Abdomen: Soft, nontender. Bowel sounds positive. Extremities: No edema. Laboratory Data: WBC 6.6, hemoglobin 12.1, platelets are 200. Chemistry shows sodium 140, potassium 2.8, chloride 105, bicarb 28, BUN 12, creatinine 0.8, glucose is 99. Micro Data: Growing E. coli in blood and urine ESBL. Assessment And Plan: Urinary tract infection and sepsis secondary to extended-spectrum beta-lactamas e Escherichia coli and bacteremia secondary to Escherichia coli extended-spectrum beta-lactamase. C ontinue meropenem for a total of 2 weeks. Repeat cultures after 10 days for followup. We will follo w the patient as needed. Thank you Dr. Ulloa for consult. NF/JESSL Voice ID: [id number] Report ID: [id number]
[2018-06-21 05:40] LABS: Absolute Lymphocytes (CBC) 1.3 K/uL (0.7-4.9); Absolute Monocytes 0.7 K/uL (0.1-1.3); Absolute Neutrophil 3.7 K/uL (1.8-8.0); Basophils % 0.9 % (0-1.3); Eosinophils % 2.9 % (0-4.4); Hematocrit 33.3 % (36.0-45.0); Lymphocytes % 22.4 % (15.3-44.8); MCH 30.5 pg (27.0-35.0); MCV 88.1 fL (80-100); Monocytes % 12.3 % (3.3-12.3); RBC Red Blood Cell Count 3.78 M/uL (3.86-4.86)
[2018-06-21 05:46] LABS: BUN Blood Urea Nitrogen 9 mg/dL (7-18); Bicarbonate 29 mmol/L (21-32); Glucose Level 104 mg/dL (74-106); Potassium 3.3 mmol/L (3.5-5.1); Sodium Level 141 mmol/L (136-145)
[2018-06-21] MEDS ORDERED: POTASSIUM 25 MEQ EFFERV TAB PO ONE (06:19)
[2018-06-21] MEDS: Meropenem 1,000 MG in NA CHLORIDE 0.9% 100 ML IV SCH ×2 (10:31→17:00)
[2018-06-21] MEDS: PANTOPRAZOLE 40 MG INJ IVP SCH (10:32)
[2018-06-21] MEDS: ENOXAPARIN 40 MG/0.4 ML SQ SCH (17:00)
--- NOTE | 2018-06-21 18:07 | PN ---
Date of Progress Note: 06/21/2018 History: The patient is seen and examined. Chart reviewed and case discussed with RN. The patient is doing well. The pain is well controlled. The patient is ambulating in the hallway without diffic ulty. Tolerating her diet. The patient was seen by Infectious Disease doctor yesterday. Review of Systems: Negative except as above. Medications: List reviewed. Physical Examination: Vital Signs: Temperature 97, heart rate 72, blood pressure 126/60, respirations 20, O2 97% on room a ir. General: Awake, alert, oriented x3, not in acute distress. Elderly female. CV: S1, S2. Regular rate and rhythm. Peripheral pulses present. Respiratory: Moving air well bilaterally. No wheezing or stridor. Gastrointestinal: Abdomen is soft, nontender, nondistended. Positive bowel sounds. Incisions are c lean, dry, intact. Extremities: No clubbing, cyanosis, or edema. Neurologic: Nonfocal. Laboratory Data: Sodium 141, potassium 3.3, chloride 106, CO2 29, BUN 9, creatinine 0.6, glucose 104 , calcium 8.6. WBC 6, H and H 11.5 and 33.3, platelets 209, neutrophils 61%. Blood culture growing E. coli and urine culture also growing E. coli, which is ESBL producing. Assessment And Plan: A 67-year-old female with: 1.Acute cystitis with extended-spectrum beta-lactamase Escherichia coli. We will continue meropenem , adjust dosage to q.8h instead of q.12. The patient will need IV antibiotics for 2 weeks total. Co ntinue contact precautions. 2.Bacteremia with extended-spectrum beta-lactamase Escherichia coli. Again, we will continue on bryn openem and long-term IV antibiotics for minimum of [address] Markham's input. 3.Acute appendicitis status post laparoscopic appendectomy, postoperative day #4, doing well. Pain is controlled. The patient is tolerating diet and having flatus. Appreciate Dr. Bautista's input. 4.Intractable nausea and vomiting, resolved. We will continue antiemetics. 5.Essential hypertension, stable on home medications. 6.Hypokalemia. We will replace and monitor. Check magnesium level. 7.Left lower lobe pneumonia, likely postoperative. Continue intact incentive spirometry. The patie nt is already on meropenem. Clinically stable. No significant cough or shortness of breath. 8.Gastrointestinal, deep vein thrombosis prophylaxis with PPI and Lovenox. The patient now starting to be somewhat ambulatory around the swift. Plan: The patient has been referred to SNF for long-term IV antibiotics. We will discharge once acc epted. JOSE MANUEL Voice ID: [id number] Report ID: [id number]
[2018-06-21] MEDS ORDERED: POTASSIUM CL SA 10 MEQ TAB PO ONE (19:30)
[2018-06-22] MEDS: Meropenem 1,000 MG in NA CHLORIDE 0.9% 100 ML IV SCH ×3 (01:22→17:28)
[2018-06-22] MEDS ORDERED: Meropenem 1 GM/100 ML BAG ONE (01:25)
[2018-06-22 05:41] LABS: BUN Blood Urea Nitrogen 10 mg/dL (7-18); Bicarbonate 30 mmol/L (21-32); Glucose Level 101 mg/dL (74-106); Magnesium 2.2 mg/dL (1.8-2.4); Potassium 3.7 mmol/L (3.5-5.1); Sodium Level 142 mmol/L (136-145)
[2018-06-22] MEDS ORDERED: POTASSIUM CL SA 10 MEQ TAB PO ONE (06:20)
[2018-06-22] MEDS: PANTOPRAZOLE 40 MG INJ IVP SCH (09:00)
[2018-06-22] MEDS: ENOXAPARIN 40 MG/0.4 ML SQ SCH (17:28)
--- NOTE | 2018-06-22 19:50 | PN ---
Date of Progress Note: 06/22/2018 Subjective: The patient is seen and examined. Chart reviewed, and case discussed with RN. The tasneem ent is doing well. Denies any pain. Able to tolerate diet. Able to ambulate well with physical the rapist. Review of Systems: Negative except as above. Medications: List reviewed. Physical Examination: Vital Signs: Temperature 98.3, heart rate 74, blood pressure 139/58, respirations 17, O2 of 98% on r oom air. General: Awake, alert, oriented x3, not in acute distress. An elderly female. CV: S1, S2. No murmurs. Pulses present. Respiratory: Moving air well bilaterally. No wheezing. Gastrointestinal: Abdomen is soft, nontender, nondistended. Positive bowel sounds. Incisions site is clean, dry, intact. Extremities: No clubbing, cyanosis, or edema. Neurologic: Nonfocal. Laboratory Data: Sodium 142, potassium 3.2, chloride 107, CO2 of 30, BUN 10, creatinine 0.5, glucose 101, calcium 8.7, magnesium 2.2. WBC pending. Blood cultures growing E. coli. Urine culture also growing E. coli. Assessment: A 67-year-old female with: 1.Acute cystitis with extended-spectrum beta-lactamase Escherichia coli. Continue meropenem q.8 mikal rs. We will continue antibiotics for 2 weeks total. Continue contact precautions. 2.Bacteremia secondary to extended-spectrum beta-lactamase Escherichia coli, on meropenem for a tota l of 2 weeks. Appreciate ID input. 3.Acute appendicitis, status post laparoscopic appendectomy, postoperative day #5, doing well postop eratively. Pain is controlled. No difficulty with diet or bowel movements. 4.Intractable nausea and vomiting, resolved. 5.Essential hypertension, stable on home medications. 6.Hypokalemia, replaced. Magnesium level is normal. 7.Left lower lobe pneumonia, likely postoperative. We will continue incentive spirometry. Covered with meropenem. Clinically stable. No fevers. No chills. Improving. 8.Gastrointestinal and deep venous thrombosis prophylaxis with PPI and Lovenox. The patient ambulat ing well. Plan: Due to the patient's pending Workmen's compensation, she does not have a little benefit for SN F, therefore we will attempt to set up home IV antibiotics with home health. Concerning the infants, who are living in her house, they will be relocated due to possibility of coinfection. The patient will be discharged once IV antibiotics are set up through home health. JOSE MANUEL Voice ID: [id number] Report ID: [id number]
--- NOTE | 2018-06-22 20:20 | PN ---
Subjective: The patient is lying in bed. Denies any headache, nausea, vomiting, chest pain, abdomin al pain, constipation, or diarrhea. Objective: Vital Signs: Temperature 98, pulse 74, respirations 17, blood pressure 139/58. Lungs: Clear to auscultation. Heart: S1, S2. Regular. Abdomen: Soft, nontender. Bowel sounds positive. Extremities: No edema. Assessment And Plan: Urosepsis secondary to Escherichia coli extended-spectrum beta-lactamase, bacte remia secondary to Escherichia coli extended-spectrum beta-lactamase. Continue IV antibiotic, merope nem total course 2 weeks. We will follow the patient as needed. ALEX/MODClarisse Voice ID: [id number] Report ID: [id number]
[2018-06-23] MEDS: Meropenem 1,000 MG in NA CHLORIDE 0.9% 100 ML IV SCH (00:44)
[2018-06-23 06:21] LABS: BUN Blood Urea Nitrogen 10 mg/dL (7-18); Bicarbonate 30 mmol/L (21-32); Glucose Level 91 mg/dL (74-106); Potassium 3.9 mmol/L (3.5-5.1); Sodium Level 144 mmol/L (136-145)
[2018-06-23] MEDS ORDERED: POTASSIUM CL SA 10 MEQ TAB PO ONE (06:47)
[2018-06-23] MEDS ORDERED: ERTAPENEM SODIUM 1 GM VIAL IVPB ONE (09:06)
[2018-06-23] MEDS ORDERED: ERTAPENEM NA 1 GM in NA CHLORIDE 0.9% 100 ML IVPB ONE (09:30)
--- NOTE | 2018-06-24 04:49 | DS ---
Date of Discharge: 06/23/2018 Consultants: 1.Favian Markham M.D., with Infectious Disease. 2.Shaheen Bautista M.D., with General Surgery. Procedure: On 06/17/2018, laparoscopic appendectomy. Postoperative Diagnosis: Cystocele of the appendix. Admitting Diagnoses: 1.Acute appendicitis. 2.Urinary tract infection. 3.Nausea and vomiting. 4.Fever. 5.Hypokalemia. Discharge Diagnoses: 1.Acute appendicitis, status post laparoscopic appendectomy. 2.Acute cystitis with extended-spectrum beta-lactamase Escherichia coli. 3.Bacteremia secondary to extended-spectrum beta-lactamase Escherichia coli. 4.Intractable nausea and vomiting, resolved. 5.Essential hypertension, stable. 6.Hypokalemia, replaced. 7.Left lower lobe pneumonia. Hospital Course: The patient is a 67-year-old female who was admitted with abdominal pain and urinar y tract infection. The patient's CT scan showed appendicitis. The patient was seen by Dr. Lily minor ith General Surgery. She was taken for laparoscopic appendectomy. The patient tolerated procedure w ell. The patient was able to tolerate her diet postoperatively and had normal bowel movements. Rega rding her UTI, the patient's urine culture grew out ESBL Escherichia coli as did her blood cultures. The patient was started on meropenem. She did have some mild electrolyte abnormalities, which were also corrected. The patient was seen by Infectious Disease, Dr. Markham, who recommended 2 weeks of I V antibiotics with meropenem. The patient, due to insurance issues, was unable to be transferred to long-term facility for IV antibiotics. Therefore, antibiotics were set up at home through home health with teaching. The patient had to be switched to Invanz which is a daily dosing compared to meropenem which is a t.i.d. dosing. The patient was stable. She was afebrile. She was able to ambu late well with assist. She was then cleared for discharge from consultants' standpoint. She was dis charged home with home health care. Followup: Follow up with primary care physician in 2 to 3 days. Follow up with Dr. Bautista for woun d check in 3 to 5 days. Follow up with ID, Dr. Markham, in 2 weeks. Return to ER for worsening condi tion. Diet: Heart healthy. Activity: Fall precautions. Medications: As per medication reconciliation list. We will finish out a course of Invanz 1 g daily for 2 weeks total. Physical Examination: General: Awake, alert, oriented x3. No acute distress. CV: S1, S2. No murmurs. Respiratory: Moving air well bilaterally. Abdomen: Soft, nontender, nondistended. Positive bowel sounds. Extremities: No clubbing, cyanosis, or edema. Neurologic: Nonfocal. Skin: Incision sites in the abdomen are clean, dry, and intact. Total time spent discharging the patient was 31 minutes. /YADIRA Voice ID: [id number] Report ID: [id number]
== END 2018-06-23 13:00 | disposition home health service (06) | DRG 341 ==
LOC: ER 22:42 → INTOOBSV 06-17 06:40 → OBSVTOIN 06-17 06:40 → ERHOLD 06-17 06:40 → 2ND 06-17 10:49 → EEVIPCON 06-19 11:26 → OBSVTOIN 06-19 11:26
PROVIDERS: ADMIT Hospitalist; ATTEND Family Medicine
PROC: 0DTJ4ZZ Resection of Appendix, Percutaneous Endoscopic Approach (ICD-10-PCS; principal; 2018-06-17 14:30)
PROC: 02HV33Z Insertion of Infusion Device into Superior Vena Cava, Percutaneous Approach (ICD-10-PCS; 2018-06-19)
PROC: B548ZZA Ultrasonography of Superior Vena Cava, Guidance (ICD-10-PCS; 2018-06-19)
DX: K35.30 Acute appendicitis with localized peritonitis, without perforation or gangrene (principal); J18.9 Pneumonia, unspecified organism; N30.00 Acute cystitis without hematuria; R78.81 Bacteremia; B96.20 Unspecified Escherichia coli [E. coli] as the cause of diseases classified elsewhere; I10 Essential (primary) hypertension; E87.6 Hypokalemia; E87.8 Other disorders of electrolyte and fluid balance, not elsewhere classified; F17.210 Nicotine dependence, cigarettes, uncomplicated; R11.14 Bilious vomiting
CPT/HCPCS: 36415; 71045; 74176; 74177; 76377; 80048; 80053; 80076; 81003; 81015; 82962; 83690; 83735; 84132; 85025; 87040; 87077; 87086; 87088; 87186; 87205; 88304; 96361; 96365; 96366; 96375; 97163; 99285; C9113; G0378; J0696; J0744; J1335; J1650; J2185; J2250; J2270; J2405; J2704; J2710; J3010; J7030; Q9967

== ENCOUNTER 2020-11-19 13:57 | Inpatient (IN) | payer OTHER ==
--- NOTE | 2020-11-19 15:32 | RAD REPORT ---
EXAM DESCRIPTION: RAD - Hip Left 2 View - 11/19/2020 3:13 pm CLINICAL HISTORY: PAIN, fall COMPARISON: No comparisons FINDINGS: AP and frogleg views of the left hip were obtained. No gross fracture deformity is seen. There is no dislocation or periosteal reaction. Femoral head mesha ntains smooth rounded contour. There are subtle trickle changes along the subcapital portion of the l eft femur. This is a common site for fracture. There are no pathologic changes. Medial joint space is narrowed. SI joint degenerative changes are present. No soft tissue abnormality. IMPRESSION: No gross left hip abnormality seen. However, there are subtle changes concerning for sub capital neck fracture. Follow-up thin section CT imaging of the left hip could be performed to help confirm or rule out frac ture.
--- NOTE | 2020-11-19 15:33 | RAD REPORT ---
EXAM DESCRIPTION: RAD - Knee Left 3 View - 11/19/2020 3:13 pm CLINICAL HISTORY: PAINfall, knee pain COMPARISON: No comparisons FINDINGS: No fracture, dislocation or periosteal reaction.No joint effusion seen. No joint space eliseo rowing. No soft tissue abnormality. Minimal marginal spurring lateral compartment. IMPRESSION: Negative left knee for acute bone or joint finding. Clinical concerns for internal derangement or occult bony injury could be further assessed with MR im aging.
[2020-11-19] MEDS ORDERED: IBUPROFEN 400 MG TAB ONE (15:47)
--- NOTE | 2020-11-19 16:07 | RAD REPORT ---
EXAM DESCRIPTION: CT - Hip Left Wo Con - 11/19/2020 3:51 pm CLINICAL HISTORY: Fall, left hip pain, abnormal plain films COMPARISON: Left hip same date TECHNIQUE: Axial noncontrast 2 millimeter thick images of the left hip joint were obtained with sagi ttal and coronal reformatted images generated and reviewed. All CT scans are performed using dose optimization technique as appropriate and may include automated exposure control or mA/KV adjustment according to patient size. FINDINGS: Left subcapital femoral neck fracture is present. There is 2 mm impaction along the latera l margin. Femoral head maintains smooth rounded contour. No pathologic component. The remainder of th e left femoral neck and intertrochanteric regions are intact. Imaged portions of the left hemipelvis show no fracture. Mild degenerative changes are present at the hip joint. No periarticular mass or hematoma. IMPRESSION: Left femur subcapital neck fracture with 2 mm impaction along the lateral margin.
[2020-11-19 17:07] LABS: Absolute Lymphocytes (CBC) 1.1 K/uL (0.7-4.9); Basophils % 0.9 % (0-1.3); Hematocrit 36.8 % (36.0-45.0); Lymphocytes % 14.9 % (15.3-44.8); RBC Red Blood Cell Count 4.03 M/uL (3.86-4.86)
--- NOTE | 2020-11-19 17:17 | EDPHYS ---
Physician Documentation [facility] Name: Elvie Parson Age: 70 yrs Sex: Female : 1950 Arrival Date: 11/19/2020 Time: 13:57 Bed 18 Private MD: ED Physician Adán Leone HPI: 11/19 14:13 This 70 yrs old Female presents to ER via EMS with complaints of Fall Injury. jmm 14:13 Details of fall: The patient fell from an upright position. Onset: The symptoms/episode jmm began/occurred acutely, just prior to arrival. Associated injuries: The patient sustained left elbow, left hip. The patient has not experienced similar symptoms in the past. This is a 70 year old female with no chronic medical conditions that presents to the ED with complaints of left hip pain, left elbow pain after a mechanical fall which occurred just prior to arrival. Patient states she walked into a table hitting her right side and fell into her right side. Denies head injury. . Historical: - Allergies: 14:06 No Known Allergies; ca1 - Home Meds: 14:06 None [Active]; ca1 - PMHx: 14:06 Heart Murmur; ca1 - PSHx: 14:06 None; ca1 - Immunization history:: Client reports having NOT received the Covid vaccine. Pneumococcal vaccine is not up to date, Flu vaccine is not up to date. - Social history:: Smoking status: Patient reports the use of cigarette tobacco products, denies chronic smoking, but will smoke occasionally. ROS: 14:13 Constitutional: Negative for fever, chills, and weight loss, Cardiovascular: Negative jmm for chest pain, palpitations, and edema, Respiratory: Negative for shortness of breath, cough, wheezing, and pleuritic chest pain. 14:13 Constitutional: Positive for 14:13 MS/extremity: Positive for injury or acute deformity, pain. 14:13 All other systems are negative. Exam: 14:13 Constitutional: This is a well developed, well nourished patient who is awake, alert, jmm and in no acute distress. Head/Face: atraumatic. Eyes: EOMI, no conjunctival erythema appreciated ENT: Moist Mucus Membranes Neck: Trachea midline, Supple Chest/axilla: Normal chest wall appearance and motion. Cardiovascular: Regular rate and rhythm. No edema appreciated Respiratory: Normal respirations, no respiratory distress appreciated Abdomen/GI: Non distended, soft Back: Normal ROM Skin: General appearance color normal 14:13 Musculoskeletal/extremity: ROM: left hip pain on rom, compartments soft, full dorsalis pulse, NVI. 14:13 Skin: Appearance: Color: normal in color. 14:13 Neuro: Orientation: is normal, Mentation: is normal, Memory: is normal. 14:13 Psych: Behavior/mood is pleasant, cooperative. Vital Signs: 14:00 BP 149 / 78; Pulse 65; Resp 18 S; Temp 98.1(TE); Pulse Ox 100% on R/A; Weight 63.5 kg ca1 (R); Height 5 ft. 6 in. (167.64 cm) (R); Pain 9/10; 15:24 BP 156 / 74; Pulse 80; Resp 16; Pulse Ox 100% on R/A; vg1 16:07 BP 136 / 54; Pulse 60; Resp 14; Pulse Ox 100% on R/A; vg1 18:34 BP 175 / 77; Pulse 62; Resp 14; Pulse Ox 100% ; vg1 21:00 BP 159 / 66; Pulse 67; Resp 16; Temp 97.7; Pulse Ox 100% on R/A; vg1 14:00 Body Mass Index 22.60 (63.50 kg, 167.64 cm) ca1 Candie Coma Score: 14:00 Eye Response: spontaneous(4). Verbal Response: oriented(5). Motor Response: obeys ca1 commands(6). Total: 15. Trauma Score (Adult): 14:00 Eye Response: spontaneous(1); Verbal Response: oriented(1); Motor Response: obeys ca1 commands(2); Systolic BP: > 89 mm Hg(4); Respiratory Rate: 10 to 29 per min(4); Candie Score: 15; Trauma Score: 12 MDM: 15:13 Patient medically screened. raf 17:14 Data reviewed: vital signs, nurses notes. Counseling: I had a detailed discussion with raf the patient and/or guardian regarding: the historical points, exam findings, and any diagnostic results supporting the discharge/admit diagnosis, radiology results, the need for further work-up and treatment in the hospital. ED course: I discussed the patient with Dr. Knight whom will consult on admission. I discussed the patient with Dr. Plascencia whom accepted the patient for admission. . 11/19 16:24 Order name: COVID-19 : Document "Date of Symptom Onset" if Symptomatic. bd 11/19 16:42 Order name: CBC with Diff [facility] 11/19 16:42 Order name: BMP [facility] 11/19 16:43 Order name: CBC with Automated Diff; Complete Time: 17:18 [facility] 11/19 16:43 Order name: Basic Metabolic Panel; Complete Time: 17:24 [facility] 11/19 14:12 Order name: Hip Left 2 View XRAY; Complete Time: 15:39 ca1 11/19 14:12 Order name: Knee Left 3 View XRAY; Complete Time: 15:39 ca1 11/19 15:34 Order name: Hip Left Wo Con; Complete Time: 16:08 [facility] 11/19 16:42 Order name: Saline Lock; Complete Time: 17:[address] [facility] 11/19 16:42 Order name: Luciano; Complete Time: 17:[address] [facility] 11/19 17:08 Order name: Chest Single View XRAY; Complete Time: 19:[address] [facility] 11/19 17:24 Order name: SARS-COV-2 RT PCR; Complete Time: 17:39 [facility] 11/19 17:08 Order name: EKG - Nurse/Tech; Complete Time: 18:[address] [facility] Administered Medications: 15:34 Drug: Ibuprofen 400 mg Route: PO; vg1 16:58 Follow up: Response: Pain is decreased vg1 Disposition: 11/20 07:16 Co-signature as Attending Physician, Adán Leone MD I agree with the assessment and [facility] plan of care. Disposition: 11/19/20 17:16 Hospitalization ordered by Todd Plascencia for Observation. Preliminary diagnosis is Left Hip Fracture. - Bed requested for Telemetry/MedSurg (observation). - Status is Observation. vg1 - Condition is Stable. - Problem is new. - Symptoms are unchanged. Signatures: Dispatcher [employer] [facility] Adán Leone MD MD cha Mickail, Joel, PA PA [facility] Lan Black, APPLICATIONS SALES CONSULTANT-C APPLICATIONS SALES CONSULTANT-Cla1 Ele Rodriges, RN RN Peace Ashton RN RN ca1 Chela Rodriges RN RN vg1 Corrections: (The following items were deleted from the chart) 11/19 16:44 16:25 CORONAVIRUS ordered. EDMS EDMS 21:12 17:16 Hospitalization Ordered by Todd Plascencia MD for Observation. Preliminary cg diagnosis is Left Hip Fracture. Bed requested for Telemetry/MedSurg (observation). Status is Observation. Condition is Stable. Problem is new. Symptoms are unchanged. m 21:33 21:12 11/19/2020 17:16 Hospitalization Ordered by Todd Plascencia MD for Observation. vg1 Preliminary diagnosis is Left Hip Fracture. Bed requested for Telemetry/MedSurg (observation). Status is Observation. Condition is Stable. Problem is new. Symptoms are unchanged. cg
--- NOTE | 2020-11-19 17:17 | ER ---
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 Denies LOC. Denies hitting head. Coronavirus screen: Client denies travel out of the [place] in the last 14 days. At this time, the client does not indicate any symptoms associated with coronavirus-19. Ebola Screen: Patient negative for fever greater than or equal to 101.5 degrees Fahrenheit, and additional compatible Ebola Virus Disease symptoms Patient denies exposure to infectious person. Patient denies travel to an Ebola-affected area in the 21 days before illness onset. No symptoms or risks identified at this time. Initial Sepsis Screen: Does the patient meet any 2 criteria? No. Patient's initial sepsis screen is negative. Does the patient have a suspected source of infection? No. Patient's initial sepsis screen is negative. Risk Assessment: Do you want to hurt yourself or someone else? Patient reports no desire to harm self or others. Onset of symptoms was November 19, 2020. 14:00 Method Of Arrival: EMS: [facility] ca1 14:00 Acuity: CRISTINA 4 ca1 14:00 Care prior to arrival: None. Mechanism of Injury: Fall from standing position. ca1 14:00 Trauma event details: Injury occurred in the [facility], Injury occurred: [facility] of business Injury occurred: November 19, 2020 Injury occurred at: 13:30. Historical: - Allergies: 14:06 No Known Allergies; ca1 - Home Meds: 14:06 None [Active]; ca1 - PMHx: 14:06 Heart Murmur; ca1 - PSHx: 14:06 None; ca1 - Immunization history:: Client reports having NOT received the Covid vaccine. Pneumococcal vaccine is not up to date, Flu vaccine is not up to date. - Social history:: Smoking status: Patient reports the use of cigarette tobacco products, denies chronic smoking, but will smoke occasionally. Screenin:35 Abuse screen: Denies threats or abuse. Nutritional screening: No deficits noted. vg1 Tuberculosis screening: No symptoms or risk factors identified. Fall Risk Fall in past 12 months (25 points). No secondary diagnosis (0 pts). IV access (20 points). Ambulatory Aid- None/Bed Rest/Nurse Assist (0 pts). Gait- Impaired (20 pts.). Mental Status- Oriented to own ability (0 pts). Total Brown Fall Scale indicates High Risk Score (45 or more points). Fall prevention measures have been instituted. Side Rails Up X 2 Placed Close to Nursing Station. Primary Survey: 14:00 NO uncontrolled hemorrhage observed. ca1 14:00 A: The patient is alert. Breathing/Chest: Respiratory pattern: regular, Respiratory ca1 effort: spontaneous, unlabored, Breath sounds: clear, bilaterally. Chest inspection: symmetrical rise and fall of the chest. Circulation: Heart tones present. Pulses: palpable bilateral radial, brachial, femoral, popliteal, posterior tibial and and dorsalis pedis arteries.. Skin color: pink, Skin temperature: warm, dry. Disability Alert. Exposure/Environment: All clothing and personal items were removed. Forensic evidence collection is not deemed to be indicated at this time. Items placed in patient belonging bag. There is no evidence of uncontrolled external bleeding. No obvious injuries are noted at this time. A warming method has been applied: A warm blanket has been provided to the patient. Assessment: 15:12 Reassessment: Pt in Xray. vg1 15:22 General: Appears in no apparent distress. uncomfortable, Behavior is calm, cooperative. vg1 Pain: Complains of pain in Left elbow, left hip, left leg Pain currently is 8 out of 10 on a pain scale. Pain began 2 hours ago. Neuro: Level of Consciousness is awake, alert, obeys commands, Oriented to person, place, time, situation. Cardiovascular: Patient's skin is warm and dry. Respiratory: Airway is patent Respiratory effort is even, unlabored. GI: No signs and/or symptoms were reported involving the gastrointestinal system. : No signs and/or symptoms were reported regarding the genitourinary system. EENT: No signs and/or symptoms were reported regarding the EENT system. Derm: Bruising that is on left elbow. Musculoskeletal: Circulation, motion, and sensation intact. pt grimacing upon palpation of left hip. 15:24 Reassessment: Received VO from Ed VASQUEZ to administer Ibuprofen 400 mg PO x1. vg1 16:07 Reassessment: Patient appears in no apparent distress at this time. No changes from vg1 previously documented assessment. Patient and/or family updated on plan of care and expected duration. Pain level reassessed. Patient is alert, oriented x 3, equal unlabored respirations, skin warm/dry/pink. 18:25 Reassessment: Patient appears in no apparent distress at this time. No changes from vg1 previously documented assessment. Patient and/or family updated on plan of care and expected duration. Pain level reassessed. Patient is alert, oriented x 3, equal unlabored respirations, skin warm/dry/pink. 21:21 Reassessment: attempted to call report. vg1 21:21 Reassessment: Patient appears in no apparent distress at this time. No changes from vg1 previously documented assessment. Patient and/or family updated on plan of care and expected duration. Pain level reassessed. Patient is alert, oriented x 3, equal unlabored respirations, skin warm/dry/pink. Vital Signs: 14:00 BP 149 / 78; Pulse 65; Resp 18 S; Temp 98.1(TE); Pulse Ox 100% on R/A; Weight 63.5 kg ca1 (R); Height 5 ft. 6 in. (167.64 cm) (R); Pain 9/10; 15:24 BP 156 / 74; Pulse 80; Resp 16; Pulse Ox 100% on R/A; vg1 16:07 BP 136 / 54; Pulse 60; Resp 14; Pulse Ox 100% on R/A; vg1 18:34 BP 175 / 77; Pulse 62; Resp 14; Pulse Ox 100% ; vg1 21:00 BP 159 / 66; Pulse 67; Resp 16; Temp 97.7; Pulse Ox 100% on R/A; vg1 14:00 Body Mass Index 22.60 (63.50 kg, 167.64 cm) ca1 Candie Coma Score: 14:00 Eye Response: spontaneous(4). Verbal Response: oriented(5). Motor Response: obeys ca1 commands(6). Total: 15. Trauma Score (Adult): 14:00 Eye Response: spontaneous(1); Verbal Response: oriented(1); Motor Response: obeys ca1 commands(2); Systolic BP: > 89 mm Hg(4); Respiratory Rate: 10 to 29 per min(4); [place] Score: 15; Trauma Score: 12 ED Course: 13:57 Patient arrived in ED. am2 14:05 Triage completed. ca1 14:06 Arm band placed on right wrist. ca1 14:56 Chela Rodriges RN is Primary Nurse. vg1 15:00 Ed Martinez PA is PHCP. jmm 15:00 Adán Leone MD is Attending Physician. jmm 15:14 Hip Left 2 View XRAY In Process Unspecified. EDMS 15:14 Knee Left 3 View XRAY In Process Unspecified. EDMS 15:25 Patient has correct armband on for positive identification. Placed in gown. Bed in low vg1 position. Call light in reach. Side rails up X2. 15:46 Patient moved to radiology via stretcher. vg1 15:51 Hip Left Wo Con In Process Unspecified. EDMS 15:55 Patient moved back from radiology. vg1 16:39 initiated transfer to [facility], pt denied due to being on complete transfer bd closure. 16:40 [place] is also on transfer closure. per Amair[place]. bd 17:00 Inserted saline lock: 20 gauge in right wrist, using aseptic technique. Blood collected.jp3 17:15 Todd Plascencia MD is Hospitalizing Provider. jmm 17:27 Luciano cath inserted, using sterile technique, 16 Fr., by mn, balloon inflated, to ss gravity drainage. Patient maintains SpO2 saturation greater than 95% on room air. 18:01 Chest Single View XRAY In Process Unspecified. EDMS 18:09 EKG done, by ED staff, reviewed by Ed VASQUEZ. jp3 21:28 No provider procedures requiring assistance completed. Patient admitted, IV remains in vg1 place. Administered Medications: 15:34 Drug: Ibuprofen 400 mg Route: PO; vg1 16:58 Follow up: Response: Pain is decreased vg1 Output: 21:22 Urine: 1000ml (Luciano); Total: 1000ml. vg1 Outcome: 17:16 Decision to Hospitalize by Provider. jmm 17:27 Instructed on the need for admit. 21:29 Admitted to [facility] accompanied by [facility], via stretcher, room 209, with chart, Report vg1 called to FREDO Omalley 21:29 Condition: stable 21:29 Instructed on the need for admit. 21:33 Patient left the ED. vg1 Signatures: Dispatcher [employer] EDMS [place] Ovalle Joel, PA PA jmm Smirch, Shelby, FREDO RN ss Ann Santamaria am2 Henry Mcpherson jp3 Peace Ashton RN RN ca1 Chela Rodriges RN RN vg1 Corrections: (The following items were deleted from the chart) 17:53 14:00 Chief complaint: EMS states: Lost balance, fell and landed on L side. Pain on L ca1 hip, L leg, bruise on L elbow. Denies LOC. Denies hitting head ca1
[2020-11-19 17:21] LABS: BUN Blood Urea Nitrogen 16 mg/dL (7-18); Bicarbonate 28 mmol/L (21-32); Glucose Level 92 mg/dL (74-106); Potassium 3.5 mmol/L (3.5-5.1); Sodium Level 142 mmol/L (136-145)
--- NOTE | 2020-11-19 19:02 | RAD REPORT ---
EXAM DESCRIPTION: RAD - Chest Single View - 11/19/2020 6:01 pm CLINICAL HISTORY: preop, hip fracture COMPARISON: Portable May 2018 TECHNIQUE: AP portable chest image was obtained 11/19/2020 6:01 pm . FINDINGS: No acute lung parenchymal process. Interstitial pattern is not substantially different fro m comparison. No pulmonary contusion. No gross rib deformity seen. Heart and vasculature are normal. No measurable pleural effusion and no pneumothorax. Soft tissue calcifications are present at the rig ht shoulder joint. No acute aortic findings suspected. IMPRESSION: No acute cardiopulmonary process. No significant change from comparison study.
[2020-11-19] MEDS ORDERED: ACETAMINOPHEN 500 MG TAB PO PRN (20:41)
--- NOTE | 2020-11-19 22:02 | P.HP ---
Certification for Inpatient Patient admitted to: Inpatient With expected LOS: >2 Midnights Patient will require the following post-hospital care: None Practitioner: I am a practitioner with admitting privileges, knowledge of patient current condition, hospital course, and medical plan of care. Services: Services provided to patient in accordance with Admission requirements found in Title 42 Section 412.3 of the Code of Federal Regulations <Lan Black - Last Filed: 11/19/20 21:59> Patient History Date of Service: 11/19/20 Primary Care Provider: none Reason for admission: Left femur fracture History of Present Illness: 70-year-old female with no significant past medical history presents emergency department after a mechanical fall at work with subsequent left femur subcapital neck fracture with 2 mm impaction. Labs unremarkable chest x-ray no acute cardiopulmonary process identified. Orthopedics was consulted while patient was in the emergency department, would like patient admitted for further evaluation and management. - Past Medical/Surgical History Diabetic: No -: arthritis -: Appendectomy Psychosocial/ Personal History: Patient employed as a senior sql server database developer, lives with her fiancee - Family History Mother -: Heart disease, Hypertension, Diabetes, Other (see notes) Notes: arthritis, bypass surgeries, thyroid Father -: Hypertension Brother -: Heart disease, Diabetes - Social History Smoking Status: Never smoker Alcohol use: No CD- Drugs: No Caffeine use: Yes Place of Residence: Home <Lan Black - Last Filed: 11/19/20 21:59> Date of Service: 11/20/20 <Todd Plascencia - Last Filed: 11/20/20 18:04> Allergies No Known Allergies Allergy (Unverified 06/08/15 14:40) Home Medications: NK [No Home Meds] 11/20/20 Review of Systems 10-point ROS is otherwise unremarkable Musculoskeletal: Leg Pain <Lan Black - Last Filed: 11/19/20 21:59> Physical Examination - Physical Exam General: Alert, In no apparent distress HEENT: Atraumatic, PERRLA, Mucous membr. moist/pink, EOMI, Sclerae nonicteric Neck: Supple, 2+ carotid pulse no bruit, No LAD, Without JVD or thyroid abnormality Respiratory: Clear to auscultation bilaterally, Normal air movement Cardiovascular: Regular rate/rhythm, Normal S1 S2 Gastrointestinal: Normal bowel sounds, No tenderness Musculoskeletal: No tenderness Integumentary: No rashes Neurological: Normal gait, Normal speech, Normal strength at 5/5 x4 extr, Normal tone, Normal affect Lymphatics: No axilla or inguinal lymphadenopathy - Studies Laboratory Data (last 24 hrs) 11/19/20 16:54: Sodium 142, Potassium 3.5, BUN 16, Creatinine 0.62, Glucose 92 11/19/20 16:54: WBC 7.60, Hgb 12.3, Hct 36.8, Plt Count 227 <Lan Black - Last Filed: 11/19/20 21:59> Assessment and Plan - Plan Assessment Left femoral subcapital neck fracture with 2 mm impaction Plan Left femoral subcapital neck fracture with 2 mm impaction: Orthopedics consulted, NPO after midnight in case of surgical intervention. Continue with SCDs for DVT prophylaxis, p.r.n. pain medications. Patient appears well this time, Luciano catheter in place. Appreciate further input from orthopedics. Discharge Plan: Home Plan to discharge in: Greater than 2 days - Advance Directives Does patient have a Living Will: No Does patient have a Durable POA for Healthcare: No - Code Status/Comfort Care Code Status Assessed: Yes (Full code) Critical Care: No Time Spent Managing Pts Care (In Minutes): 55 <Lan Black - Last Filed: 11/19/20 21:59> - Plan Plan of care reviewed as noted above by Lan Robb femoral neck fracture ortho consulted - to go to OR on 11/20 no medical history, otherwise appears healthy NPO, IVF, VTE prophylaxis <Todd Plascencia - Last Filed: 11/20/20 18:04>
[2020-11-19 23:07] VITALS: BMI 23.7
[2020-11-19] MEDS: MORPHINE 2 MG/ML SYR IV PRN (23:36)
[2020-11-19] MEDS: ONDANSETRON 4 MG/2 ML VIAL IV PRN (23:36)
[2020-11-20 00:28] LABS: Urine Appearance CLEAR (Clear); Urine Bilirubin NEGATIVE (Negataive); Urine Blood NEGATIVE (Negative); Urine Color YELLOW (Yellow); Urine Glucose NEGATIVE (Negative); Urine Protein NEGATIVE (Negative); Urine Specific Gravity 1.015 (1.005-1.030); Urine pH 7.5 (5.0-7.0)
[2020-11-20 00:59] LABS: Urine Microscopic Reflex ORDER UMIC
[2020-11-20 01:17] LABS: Urine Amorphous Sediment 1+ /HPF (NONE SEEN); Urine Bacteria <20 /HPF (<20); Urine RBC <5 /HPF (NONE SEEN)
[2020-11-20 05:57] LABS: Absolute Lymphocytes (CBC) 0.8 K/uL (0.7-4.9); Basophils % 0.8 % (0-1.3); Hematocrit 33.5 % (36.0-45.0); Lymphocytes % 11.5 % (15.3-44.8); MPV 8.6 fL (7.6-11.3); RBC Red Blood Cell Count 3.66 M/uL (3.86-4.86)
[2020-11-20 06:19] LABS: Albumin 3.3 g/dL (3.4-5.0); Bilirubin Total 0.8 mg/dL (0.2-1.0); Magnesium 2.3 mg/dL (1.8-2.4); Protein, Total 6.9 g/dL (6.4-8.2); Thyroid Stimulating Hormone 1.76 uIU/mL (0.360-3.740)
[2020-11-20] MEDS: ONDANSETRON 4 MG/2 ML VIAL IV PRN (08:24)
[2020-11-20] MEDS: MORPHINE 2 MG/ML SYR IV PRN ×2 (08:24→12:18)
--- NOTE | 2020-11-20 11:49 | P.PN ---
Subjective Date of Service: 11/20/20 Primary Care Provider: none Chief Complaint: Left femur fracture Subjective: No new changes (Feels okay, pain tolerable if not moving. Denies fevers/chills, no chest pain, no shortness of breath) Review of Systems 10-point ROS is otherwise unremarkable Physical Examination - Vital Signs Temperature: 97.7 F Blood Pressure: 134/61 Pulse: 66 Respirations: 16 Pulse Ox (%): 98 - Studies Laboratory Data (last 24 hrs) 11/19/20 16:54: Sodium 142, Potassium 3.5, BUN 16, Creatinine 0.62, Glucose 92 11/19/20 16:54: WBC 7.60, Hgb 12.3, Hct 36.8, Plt Count 227 Assessment & Plan Physician Review Additional Text: Physical Exam General: Alert, In no apparent distress HEENT: Atraumatic, PERRLA, Mucous membr. moist/pink Respiratory: Clear to auscultation bilaterally, Normal air movement Cardiovascular: Regular rate/rhythm, Normal S1 S2 Gastrointestinal: Normal bowel sounds, No tenderness Skin/MSK: TTP along left lateral hip, mild ecchymosis overlying area, no calf tenderness. SCDs in place Neuro: intact distal sensation with mild tingling of L foot with palpation Problem list Left femoral subcapital neck fracture with 2 mm impaction -Ortho consulted, plan for OR this afternoon -NPO, IVF -SCDs -PRN pain medications -Luciano in place -mechanical fall, otherwise healthy. Patient may benefit from rehab -PT/OT to see patient after surgery - tomorrow VTE: SCDs for now Code: full Dispo: possible rehab, PT/OT to see patient post-op Time Spent Managing Pts Care (In Minutes): 35
--- NOTE | 2020-11-20 12:45 | P.CNS ---
Date of Consult: 11/20/20 Primary Care Provider: none Chief Complaint: Left femur fracture Allergies No Known Allergies Allergy (Unverified 06/08/15 14:40) Home Medications: NK [No Home Meds] 11/20/20 - Past Medical/Surgical History Diabetic: No -: arthritis -: Appendectomy Psychosocial/ Personal History: Patient employed as a client evaluator, lives with her fiancee - Family History Mother Medical History: Heart disease, Hypertension, Diabetes, Other (see notes) Notes: arthritis, bypass surgeries, thyroid Father Medical History: Hypertension, Stroke Brother Medical History: Heart disease, Diabetes - Social History Smoking Status: Current some day smoker Alcohol use: Yes CD- Drugs: No Caffeine use: Yes Place of Residence: Home Review of Systems 10-point ROS is otherwise unremarkable Physical Examination Temp Pulse Resp BP Pulse Ox 97.7 F 66 16 134/61 98 11/20/20 11:49 11/20/20 11:49 11/20/20 12:18 11/20/20 11:49 11/20/20 12:18 General: Oriented x3 HEENT: Atraumatic Musculoskeletal: Other (left hip pain) Laboratory Data (last 24 hrs) 11/19/20 16:54: Sodium 142, Potassium 3.5, BUN 16, Creatinine 0.62, Glucose 92 11/19/20 16:54: WBC 7.60, Hgb 12.3, Hct 36.8, Plt Count 227 Imagings Data: Reason for Exam: PAIN Report Status: Signed EXAM DESCRIPTION: RAD - Hip Left 2 View - 11/19/2020 3:13 pm CLINICAL HISTORY: PAIN, fall COMPARISON: No comparisons FINDINGS: AP and frogleg views of the left hip were obtained. No gross fracture deformity is seen. There is no dislocation or periosteal reaction. Femoral head maintains smooth rounded contour. There are subtle trickle changes along the subcapital portion of the left femur. This is a common site for fracture. There are no pathologic changes. Medial joint space is narrowed. SI joint degenerative changes are present. No soft tissue abnormality. IMPRESSION: No gross left hip abnormality seen. However, there are subtle changes concerning for subcapital neck fracture. Follow-up thin section CT imaging of the left hip could be performed to help confirm or rule out fracture. Dictated By: Corey Alexander MD 11/19/20 1532 Signed By: Corey Alexander MD 11/19/20 1532 Reason for Exam: fall ,hip pain Report Status: Signed EXAM DESCRIPTION: CT - Hip Left Wo Con - 11/19/2020 3:51 pm CLINICAL HISTORY: Fall, left hip pain, abnormal plain films COMPARISON: Left hip same date TECHNIQUE: Axial noncontrast 2 millimeter thick images of the left hip joint were obtained with sagittal and coronal reformatted images generated and reviewed. All CT scans are performed using dose optimization technique as appropriate and may include automated exposure control or mA/KV adjustment according to patient size. FINDINGS: Left subcapital femoral neck fracture is present. There is 2 mm impaction along the lateral margin. Femoral head maintains smooth rounded contour. No pathologic component. The remainder of the left femoral neck and intertrochanteric regions are intact. Imaged portions of the left hemipelvis show no fracture. Mild degenerative changes are present at the hip joint. No periarticular mass or hematoma. IMPRESSION: Left femur subcapital neck fracture with 2 mm impaction along the lateral margin. Dictated By: Corey Alexander MD 11/19/20 1606 Signed By: Corey Alexander MD 11/19/20 1607 - Problems (1) Fracture of femoral neck Onset Date: ~11/19/20 Current Visit: Yes Status: Acute Plan: consented for a left hip hemiarthroplasty vs canulated hip screws today at 5:00 pm remain npo Qualifiers: Encounter type: initial encounter Fracture type: closed Laterality: left Qualified Code(s): S72.002A - Fracture of unspecified part of neck of left femur, initial encounter for closed fracture Conclusions/Impression: consented for a left hip hemiarthroplasty vs canulated hip screws today at 5:00 pm remain npo
[2020-11-20] MEDS ORDERED: Ringers Lactate 1,000 ML IV ONE (15:40)
[2020-11-20] MEDS ORDERED: CEFAZOLIN SODIUM 1 GM/VIAL ONE (15:41)
[2020-11-20] MEDS ORDERED: TRANEXAMIC ACID 1,000 MG in NA CHLORIDE 0.9% 50 ML IV ONE ×4 (16:00)
[2020-11-20] MEDS: CEFAZOLIN/SWI 1gm 1 GM/10 ML SYR ONE ×3 (16:08→16:54)
[2020-11-20] MEDS ORDERED: propofoL 200 MG/20 ML VIAL IV ONE (16:23)
[2020-11-20] MEDS ORDERED: LIDOCAINE 2% MPF 5 ML VIAL ONE (16:24)
[2020-11-20] MEDS ORDERED: ROCURONIUM 50 MG/5 ML VIAL IV ONE (16:27)
[2020-11-20] MEDS ORDERED: FENTANYL CITR 100 MCG/2 ML ONE ×2 (16:28→17:49)
[2020-11-20] MEDS ORDERED: EPHEDRINE SULF 50 MG/ML VIAL ONE (17:19)
[2020-11-20] MEDS ORDERED: ONDANSETRON 4 MG/2 ML VIAL ONE ×3 (17:30→19:30)
[2020-11-20] MEDS ORDERED: KETOROLAC 30 MG/ML INJ ONE (17:30)
[2020-11-20] MEDS ORDERED: dexAMETHasone 10 MG/ML VIAL ONE (17:48)
[2020-11-20] MEDS ORDERED: dexAMETHasone 4 MG/ML VIAL ONE (17:49)
[2020-11-20] MEDS ORDERED: NEOSTIGMINE 1 MG/ML -5 ML ONE (18:00)
[2020-11-20] MEDS ORDERED: GLYCOPYRROLATE 0.2 MG/ML SYR ONE (18:00)
[2020-11-20] MEDS ORDERED: ONDANSETRON 4 MG/2 ML VIAL IV PRN (18:08)
[2020-11-20] MEDS ORDERED: HYDROCODONE/APAP 5/325 MG TAB PO PRN ×2 (18:11→18:34)
[2020-11-20] MEDS ORDERED: MORPHINE/NS PCA 50 MG/50 ML PCA.SYRING IV PRN (18:12)
[2020-11-20] MEDS ORDERED: NALOXONE 0.4 MG/ML VIAL IV PRN (18:12)
[2020-11-20] MEDS ORDERED: HYDROMORPHONE HCL 1 MG/ML INJ ONE (18:41)
--- NOTE | 2020-11-20 19:38 | RAD REPORT ---
EXAM DESCRIPTION: RAD - Pelvis - 11/20/2020 6:26 pm CLINICAL HISTORY: S/P LEFT BIPOLAR HIP COMPARISON: Hip Left Wo Con dated 11/19/2020; Hip Left 2 View dated 11/19/2020 TECHNIQUE: AP imaging of the pelvis was obtained. FINDINGS: Single view of the lower pelvis and upper thighs obtained. Bipolar prosthesis has been alecia deanne on the left. No suspicious or unexpected bone or implant finding. IMPRESSION: Left bipolar prosthesis placement with no suspicious or unexpected finding.
[2020-11-20] MEDS: DOCUSATE NA 100 MG CAP PO SCH (20:14)
[2020-11-20] MEDS: NACHLORIDE 0.45% 1,000 ML IV SCH (20:17)
[2020-11-21] MEDS ORDERED: HYDROCODONE/APAP 5/325 MG TAB PO PRN (01:02)
[2020-11-21] MEDS: CEFAZOLIN/SWI 1gm 1 GM/10 ML SYR IVP SCH ×2 (01:05→08:29)
--- NOTE | 2020-11-21 02:03 | OP ---
Surgeon: Jewel Knight MD Preoperative Diagnosis: Left hip femoral neck fracture. Postoperative Diagnosis: Left hip femoral neck fracture. Procedure Performed: Left hip hemiarthroplasty. Aircraft Launch And Recovery Technician: Lavonne. Complications: None. Disposition: Recovery room, stable. Drains: 1 Hemovac above the fascia. Procedure In Detail: The patient was taken to the operative suite, placed in supine position, induce d anesthesia. Left hip was prepped and draped in usual sterile fashion, placed in a lateral position . Posterior approach to the hip was utilized. Hemostasis was verified. . Gluteus maximu s split bluntly. External rotators tagged for later reattachment. A 50 femoral head was delivered f rom the acetabulum. The canal was reamed with a reaming broach technique for a 16 mm standard offset femoral head with a -6, 28 ball was appropriate. Permanent implants were then placed followed by a layered closure with a Hemovac placed above the fascia. The patient is being reversed from anesthesi a at the time of this dictation. GENARO/YADIRA Voice ID: [id number] Report ID: [id number]
[2020-11-21 06:16] LABS: Absolute Lymphocytes (CBC) 0.5 K/uL (0.7-4.9); Hematocrit 29.4 % (36.0-45.0); Lymphocytes % 5.7 % (15.3-44.8); MPV 8.3 fL (7.6-11.3); RBC Red Blood Cell Count 3.24 M/uL (3.86-4.86)
[2020-11-21 06:34] LABS: Bilirubin Total 0.6 mg/dL (0.2-1.0); Magnesium 2.2 mg/dL (1.8-2.4); Potassium 4.2 mmol/L (3.5-5.1); Protein, Total 6.5 g/dL (6.4-8.2)
[2020-11-21] MEDS: DOCUSATE NA 100 MG CAP PO SCH ×2 (08:29→21:07)
[2020-11-21] MEDS: NACHLORIDE 0.45% 1,000 ML IV SCH (08:38)
[2020-11-21] MEDS: HYDROCODONE/APAP 5/325 MG TAB PO PRN ×2 (08:38→17:58)
[2020-11-21 09:05] LABS: Blood Morphology Comment NOT SEEN (NOT SEEN); Platelet Estimate ADEQ; White Blood Cell Scan OK (OK)
[2020-11-21] MEDS ORDERED: NACHLORIDE 0.45% 500 ML IV SCH (11:00)
--- NOTE | 2020-11-21 11:58 | P.PN ---
Subjective Date of Service: 11/21/20 Primary Care Provider: none Chief Complaint: Left femur fracture Subjective: No new changes, Working w/ PT (did well with pt,) Review of Systems 10-point ROS is otherwise unremarkable Physical Examination - Vital Signs Temperature: 97.2 F Blood Pressure: 111/58 Pulse: 64 Respirations: 17 Pulse Ox (%): 100 - Physical Exam General: Alert HEENT: Atraumatic Musculoskeletal: Other (dressings c/d/i drain pulled) Assessment And Plan - Current Problems (Diagnosis) (1) Fracture of femoral neck Onset Date: ~11/19/20 Current Visit: Yes Status: Acute Plan: s/p left hip hemiarthroplasty will d/c home with home health PT when safe and stable, anticoagulate 28 days, follow up in the office 2 weeks popst op. Qualifiers: Encounter type: initial encounter Fracture type: closed Laterality: left Qualified Code(s): S72.002A - Fracture of unspecified part of neck of left femur, initial encounter for closed fracture Discharge Plan: Home Plan to discharge in: 24 Hours Physician Review Additional Text: Physical Exam General: Alert, In no apparent distress HEENT: Atraumatic, PERRLA, Mucous membr. moist/pink Respiratory: Clear to auscultation bilaterally, Normal air movement Cardiovascular: Regular rate/rhythm, Normal S1 S2 Gastrointestinal: Normal bowel sounds, No tenderness Skin/MSK: TTP along left lateral hip, mild ecchymosis overlying area, no calf tenderness. SCDs in place Neuro: intact distal sensation with mild tingling of L foot with palpation Problem list Left femoral subcapital neck fracture with 2 mm impaction -Ortho consulted, plan for OR this afternoon -NPO, IVF -SCDs -PRN pain medications -Luciano in place -mechanical fall, otherwise healthy. Patient may benefit from rehab -PT/OT to see patient after surgery - tomorrow VTE: SCDs for now Code: full Dispo: possible rehab, PT/OT to see patient post-op
--- NOTE | 2020-11-21 12:45 | P.PN ---
Subjective Date of Service: 11/21/20 Primary Care Provider: none Chief Complaint: Left femur fracture Subjective: Improving (pain seems to be managed. tolerating PO, passing flatus, no nausea/vomiting, no chest pain, no SOB) Review of Systems 10-point ROS is otherwise unremarkable Physical Examination - Vital Signs Temperature: 97.2 F Blood Pressure: 111/58 Pulse: 64 Respirations: 17 Pulse Ox (%): 100 Assessment & Plan Physician Review Additional Text: Physical Exam General: Alert, In no apparent distress HEENT: Atraumatic, PERRLA, Mucous membr. moist/pink Respiratory: Clear to auscultation bilaterally, Normal air movement Cardiovascular: Regular rate/rhythm, Normal S1 S2 Gastrointestinal: Normal bowel sounds, No tenderness Skin/MSK: TTP along left lateral hip, surgical dressing in place Neuro: intact distal sensation, normal strength distally Problem list Left femoral subcapital neck fracture with 2 mm impaction -Ortho consulted, s/p repair on 11/20 -doing well -continue anticoagulation -PRN pain medications -mechanical fall, otherwise healthy. -PT/OT to see patient today -pt reports she would prefer to go home with home PT VTE: lovenox Code: full Dispo: PT/OT to see patient, likely home with home PT, anticipate dc tomorrow Time Spent Managing Pts Care (In Minutes): 35
[2020-11-21] MEDS: ENOXAPARIN 30 MG/0.3 ML SQ SCH ×2 (12:50→21:07)
[2020-11-22] MEDS: HYDROCODONE/APAP 5/325 MG TAB PO PRN ×2 (04:37→09:13)
[2020-11-22 06:18] LABS: Absolute Lymphocytes (CBC) 0.9 K/uL (0.7-4.9); Basophils % 0.6 % (0-1.3); Lymphocytes % 11.5 % (15.3-44.8); MPV 8.3 fL (7.6-11.3); RBC Red Blood Cell Count 3.36 M/uL (3.86-4.86)
[2020-11-22 06:47] LABS: Potassium 4.2 mmol/L (3.5-5.1)
[2020-11-22] MEDS: RIVAROXABAN 10 MG TABLET PO SCH (09:13)
[2020-11-22] MEDS: DOCUSATE NA 100 MG CAP PO SCH ×2 (09:14→20:48)
--- NOTE | 2020-11-22 13:20 | P.PN ---
Subjective Date of Service: 11/22/20 Primary Care Provider: none Chief Complaint: Left femur fracture Subjective: Improving (no acute events overnight. took a step this morning and had a lot of pain in L hip. Pt hasn't been asking for much pain medication - she states she is trying to avoid it. +flatus, no nausea/vomiting, no SOB, no fever/chills, voiding without issue, no dysuria) Review of Systems 10-point ROS is otherwise unremarkable Physical Examination - Vital Signs Temperature: 97.8 F Blood Pressure: 132/59 Pulse: 93 Respirations: 93 Pulse Ox (%): 132 Assessment & Plan Physician Review Additional Text: Physical Exam General: Alert, In no apparent distress HEENT: Mucous membr. moist/pink, normal conjunctiva/sclera anicteric Respiratory: Clear to auscultation bilaterally, Normal air movement Cardiovascular: Regular rate/rhythm, Normal S1 S2 Gastrointestinal: Normal bowel sounds, No tenderness Skin/MSK: TTP along left lateral hip, surgical dressing in place, c/d/i Ext: intact distal sensation, cap refill < 2sec, 2+ DP pulse Problem list Left femoral subcapital neck fracture with 2 mm impaction s/p repair (11/20) -Ortho consulted, s/p repair on 11/20 -improving, but in some pain this morning -discussed importance of taking pain medication when needed -lovenox transitioned to xarelto this morning - needs 4 weeks -PRN pain medications per Ortho -mechanical fall, otherwise healthy. -worked and did ok with PT yesterday -pt reports she would prefer to go home with home PT -will see how patient does today with pain and ambulation with PT again VTE: Xarelto Code: Full Dispo: home with home PT - anticipate within the next 24-48hrs SW/CM consulted for home health/PT Time Spent Managing Pts Care (In Minutes): 35
[2020-11-22] MEDS: DIPHENHYDRAMINE 25 MG TAB/CAP PO PRN (18:32)
[2020-11-23] MEDS: HYDROCODONE/APAP 5/325 MG TAB PO PRN ×3 (04:51→23:59)
[2020-11-23] MEDS: DOCUSATE NA 100 MG CAP PO SCH ×2 (08:18→20:35)
[2020-11-23] MEDS: RIVAROXABAN 10 MG TABLET PO SCH (08:18)
--- NOTE | 2020-11-23 09:34 | P.PN ---
Subjective Date of Service: 11/23/20 Primary Care Provider: none Chief Complaint: Left femur fracture Subjective: Improving (feeling well, eating, voiding, +BM, ambulating with walker and assistance slowly in room. pain tolerable with medication.) Review of Systems 10-point ROS is otherwise unremarkable Physical Examination - Vital Signs Temperature: 97 F Blood Pressure: 117/56 Pulse: 65 Respirations: 18 Pulse Ox (%): 96 Assessment & Plan Physician Review Additional Text: Physical Exam General: Alert, In no apparent distress HEENT: Mucous membr. moist/pink, normal conjunctiva/sclera anicteric Respiratory: Clear to auscultation bilaterally, Normal air movement Cardiovascular: Regular rate/rhythm, Normal S1 S2 Gastrointestinal: Normal bowel sounds, No tenderness Skin/MSK: mild TTP along left lateral hip, dressing c/d/i Ext: intact distal sensation, cap refill < 2sec, 2+ DP pulse bilaterally Problem list Left femoral subcapital neck fracture with 2 mm impaction s/p repair (11/20) -mechanical fall, otherwise healthy -Ortho consulted, s/p repair on 11/20 -discussed importance of taking pain medication when needed -continue xarelto - needs 4 weeks total -PRN pain medications per Ortho -working with PT -patient improving each day, awaiting workman's comp for disposition, no paperwork received from employer VTE: Xarelto Code: Full Dispo: home with home PT - anticipate within the next 24-48hrs SW/CM consulted for home health/PT - spoke with employer on 11/22 Time Spent Managing Pts Care (In Minutes): 35
[2020-11-23] MEDS: DIPHENHYDRAMINE 25 MG TAB/CAP PO PRN (13:17)
[2020-11-24 06:26] LABS: BUN Blood Urea Nitrogen 17 mg/dL (7-18); Bicarbonate 27 mmol/L (21-32); Glucose Level 103 mg/dL (74-106); Potassium 3.6 mmol/L (3.5-5.1); Sodium Level 139 mmol/L (136-145)
[2020-11-24] MEDS: DOCUSATE NA 100 MG CAP PO SCH ×2 (08:47→20:46)
[2020-11-24] MEDS: HYDROCODONE/APAP 5/325 MG TAB PO PRN (08:47)
[2020-11-24] MEDS: DIPHENHYDRAMINE 25 MG TAB/CAP PO PRN (13:10)
[2020-11-24] MEDS: RIVAROXABAN 10 MG TABLET PO SCH (13:13)
--- NOTE | 2020-11-24 16:49 | P.PN ---
Subjective Date of Service: 11/24/20 Primary Care Provider: none Chief Complaint: Left femur fracture Subjective: No new changes (Patient feeling well, reports felt sweaty/clammy for a brief moment after walking around the floor yesterday, no further episodes. No shortness of breath, voiding without issue, had BM yesterday) Review of Systems 10-point ROS is otherwise unremarkable Physical Examination - Vital Signs Temperature: 97.9 F Blood Pressure: 130/58 Pulse: 97 Respirations: 16 Pulse Ox (%): 99 Assessment & Plan Physician Review Additional Text: Physical Exam General: Alert, In no apparent distress HEENT: Mucous membr. moist/pink, normal conjunctiva/sclera anicteric Respiratory: Clear to auscultation bilaterally, Normal air movement Cardiovascular: Regular rate/rhythm, Normal S1 S2 Gastrointestinal: Normal bowel sounds, No tenderness Skin/MSK: mild TTP along left lateral hip, dressing c/d/i Ext: intact distal sensation, cap refill < 2sec, 2+ DP pulse bilaterally Problem list Left femoral subcapital neck fracture with 2 mm impaction s/p repair (11/20) -mechanical fall, otherwise healthy -Ortho consulted, s/p repair on 11/20 -continue xarelto - needs 4 weeks total -PRN pain medications per Ortho -working with PT -patient improving each day, awaiting workers comp for disposition VTE: Xarelto Code: Full Dispo: home with home PT - patient doing well, to look for walker and toilet seat with handles today SW/CM consulted for home health/PT - spoke with employer on 11/22, waiting to hear back from worker's comp - may not be processed for several days Time Spent Managing Pts Care (In Minutes): 35
[2020-11-25] MEDS: DOCUSATE NA 100 MG CAP PO SCH ×2 (08:46→20:51)
[2020-11-25] MEDS: RIVAROXABAN 10 MG TABLET PO SCH (08:46)
[2020-11-25] MEDS ORDERED: POTASSIUM 25 MEQ EFFERV TAB PO ONE (09:00)
[2020-11-25] MEDS: HYDROCODONE/APAP 5/325 MG TAB PO PRN (11:28)
--- NOTE | 2020-11-25 13:03 | P.PN ---
Subjective Date of Service: 11/25/20 Primary Care Provider: none Chief Complaint: Left femur fracture Patient has no new complain. Patient tolerating physical therapy and ambulating with a walker. Physical Examination - Vital Signs Temperature: 97.8 F Blood Pressure: 107/64 Pulse: 87 Respirations: 18 Pulse Ox (%): 100 - Physical Exam General: Alert, In no apparent distress, Oriented x3 Neck: Supple Respiratory: Clear to auscultation bilaterally, Normal air movement Cardiovascular: No edema, Regular rate/rhythm, Normal S1 S2 Gastrointestinal: Soft and benign, Non-distended Musculoskeletal: No swelling Integumentary: No rashes Neurological: Normal strength at 5/5 x4 extr Assessment And Plan Physician Review Additional Text: Physical Exam General: Alert, In no apparent distress HEENT: Mucous membr. moist/pink, normal conjunctiva/sclera anicteric Respiratory: Clear to auscultation bilaterally, Normal air movement Cardiovascular: Regular rate/rhythm, Normal S1 S2 Gastrointestinal: Normal bowel sounds, No tenderness Skin/MSK: mild TTP along left lateral hip, dressing c/d/i Ext: intact distal sensation, cap refill < 2sec, 2+ DP pulse bilaterally Problem list Left femoral subcapital neck fracture with 2 mm impaction s/p repair (11/20) -mechanical fall, otherwise healthy -Ortho consulted, s/p repair on 11/20 -continue xarelto - needs 4 weeks total -PRN pain medications per Ortho -working with PT -patient improving each day, awaiting workers comp for disposition to home with home health. VTE: Xarelto Code: Full Dispo: home with home PT - patient doing well. SW/CM consulted for home health/PT
[2020-11-25] MEDS: DIPHENHYDRAMINE 25 MG TAB/CAP PO PRN (18:45)
[2020-11-26 06:18] LABS: BUN Blood Urea Nitrogen 17 mg/dL (7-18); Bicarbonate 28 mmol/L (21-32); Glucose Level 95 mg/dL (74-106); Potassium 3.8 mmol/L (3.5-5.1); Sodium Level 137 mmol/L (136-145)
[2020-11-26] MEDS: RIVAROXABAN 10 MG TABLET PO SCH (09:00)
[2020-11-26] MEDS: DOCUSATE NA 100 MG CAP PO SCH (09:00)
[2020-11-26 10:35] VITALS: O2SAT 99
--- NOTE | 2020-11-26 12:46 | P.DS ---
Admission Date: 11/19/20 Discharge Date: 11/26/20 Primary Care Provider: none Disposition: DC HOME/HOME HEALTH CARE Discharge Condition: GOOD Reason for Admission: Left femur fracture Consultations: Orthopedics-Dr. Knight - Problems (1) Fracture of femoral neck Onset Date: ~11/19/20 Current Visit: Yes Status: Acute Qualifiers: Encounter type: initial encounter Fracture type: closed Laterality: left Qualified Code(s): S72.002A - Fracture of unspecified part of neck of left femur, initial encounter for closed fracture Brief History of Present Illness: 70-year-old woman was brought to the emergency department after a mechanical fall. Imaging done in the emergency department demonstrated left femoral neck fracture. Orthopedic surgery was consulted and patient admitted to the hospital for further management. Hospital Course: Patient seen by Dr. Knight, ORIF performed. Postop period was uneventful. 28 days of anticoagulation with Xarelto recommended. Patient ambulated several feet with a walker in the hallway during physical therapy. Patient stable for discharge to home with home health. Vital Signs/Physical Exam: Temp Pulse Resp BP Pulse Ox 97.7 F 79 18 110/52 L 99 11/26/20 08:00 11/26/20 08:00 11/26/20 08:00 11/26/20 08:00 11/26/20 08:00 General: Alert, In no apparent distress, Oriented x3 Respiratory: Clear to auscultation bilaterally, Normal air movement Cardiovascular: No edema, Regular rate/rhythm Gastrointestinal: Soft and benign, No tenderness Musculoskeletal: No swelling, No erythema Integumentary: No rashes Neurological: Normal strength at 5/5 x4 extr Laboratory Data at Discharge: WBC 7.50 K/uL (4.3-10.9) 11/22/20 05:57 Hgb 10.3 g/dL (12.0-15.0) L 11/22/20 05:57 Hct 31.0 % (36.0-45.0) L 11/22/20 05:57 Plt Count 203 K/uL (152-406) 11/22/20 05:57 Sodium 137 mmol/L (136-145) 11/26/20 05:27 Potassium 3.8 mmol/L (3.5-5.1) 11/26/20 05:27 BUN 17 mg/dL (7-18) 11/26/20 05:27 Creatinine 0.65 mg/dL (0.55-1.3) 11/26/20 05:27 Glucose 95 mg/dL (74-106) 11/26/20 05:27 Magnesium 2.2 mg/dL (1.8-2.4) 11/21/20 05:43 Total Bilirubin 0.6 mg/dL (0.2-1.0) 11/21/20 05:43 AST 20 U/L (15-37) 11/21/20 05:43 ALT 18 U/L (12-78) 11/21/20 05:43 Alkaline Phosphatase 93 U/L (45-117) 11/21/20 05:43 Triglycerides 84 mg/dL (<150) 11/20/20 05:23 Cholesterol 214 mg/dL (<200) H 11/20/20 05:23 HDL Cholesterol 91 mg/dL (40-60) H 11/20/20 05:23 Cholesterol/HDL Ratio 2.35 11/20/20 05:23 Home Medications: Docusate [Colace Cap*] 100 mg PO DAILY 30 Days #30 cap 11/22/20 Rivaroxaban [Xarelto*] 10 mg PO DAILY 30 Days #30 tablet 11/22/20 traMADol HCL [Ultram*] 50 mg PO Q6H PRN #20 tab 11/26/20 New Medications: Docusate [Colace Cap*] 100 mg PO DAILY 30 Days #30 cap traMADol HCL [Ultram*] 50 mg PO Q6H PRN #20 tab PRN Reason: Pain Rivaroxaban [Xarelto*] 10 mg PO DAILY 30 Days #30 tablet Activity: Weight bearing as tolerated Followup: NONE,NONE [Primary Care Provider] - 1-2 Weeks Jewel Knight MD [ACTIVE - CAN ADMIT] - (Within 2 weeks.) Time spent managing pt's care (in minutes): 28
[2020-11-26] MEDS: HYDROCODONE/APAP 5/325 MG TAB PO PRN (14:01)
[2020-11-26 14:19] VITALS: BP 115/58; TEMP 98.2
== END 2020-11-26 15:07 | disposition home health service (06) | DRG 522 ==
LOC: ER 13:57 → ERHOLD 19:02 → 2ND 21:29
PROVIDERS: ADMIT Hospitalist; ATTEND Internal Medicine
PROC: 0SRS0JZ Replacement of Left Hip Joint, Femoral Surface with Synthetic Substitute, Open Approach (ICD-10-PCS; principal; 2020-11-20 16:00)
DX: S72.012A Unspecified intracapsular fracture of left femur, initial encounter for closed fracture (principal); F17.210 Nicotine dependence, cigarettes, uncomplicated; W18.30XA Fall on same level, unspecified, initial encounter; Z90.49 Acquired absence of other specified parts of digestive tract; Z79.899 Other long term (current) drug therapy; Z79.01 Long term (current) use of anticoagulants; Z20.822 Contact with and (suspected) exposure to COVID-19
CPT/HCPCS: 36415; 51702; 71045; 72170; 73700; 80048; 80053; 80061; 81003; 81015; 82947; 83735; 84439; 84443; 85025; 87086; 87088; 88305; 88311; 93005; 97110; 97116; 97161; 97530; 99285; J0690; J1100; J1170; J1650; J2270; J2405; J2704; J2710; J3010; J7120; U0003